=== PATIENT | female | born 2000 | race Hispanic/Latino ===

== ENCOUNTER 2024-11-11 02:35 | Emergency (ER) | payer SELFPAY ==
--- OUTSIDE RECORDS SUMMARY | 2024-11-11 02:41 | XMS REPORT | Continuity of Care Document ---
Author Name Unknown Address [address] [facility] [address] [place] [address] [facility] Address [address] [facility] 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 Name Role Phone Mone Soto Primary Care Physician [phone] Doctor Unassigned, [place] Attending Clinician U CHANDRIKA Sanches Attending Clinician Unavailable Chandrika Ivy DNP Attending Clinician [phone] [email or web address] Attending Clinician Unavailpamela Tariqb, [facility] Main Attending Clinician Junito Soria MD Attending Clinician [phone] JUNITO CONNER Attending Clinician Unavailfaizan barbosa Doctor Unassigned, [place] Attending Clinician U DMITRY Kramer Attending Clinician Unavailable Moises Pate DO Attending Clinician [phone] Dmitry Baum MD Attending Clinician [phone], [facility] Attending Clinician Unavailable Keren Sandoval MD Attending Clinician [phone] ALEJANDRO PASCUAL Attending Clinician Unavailable Alejandro Pascual MD Attending Clinician [phone], [facility] Attending Clinician Unavailable Billie Torres Attending Clinician + DMITRY BAUM Admitting Clinician Unavailable ALEJANDRO PASCUAL Admitting Clinician Unavailable [email or web address] Admitting Clinician Dmitry Hillman MD Admitting Clinician Alejandro Pascual MD Admitting Clinician Payers Payer Name Policy Type Policy Number Effective Date Expirati on Date Source CIGNA II [id number] 2018 00:00:00 [facility] MEDICA[employer] [id number] 2018 00:00:00 [employer] - CHOICE (POS II) [id number] 2020 00:00:00 Problems Condition Name Condition Details Condition Category Status Onset Date Resolution Date Last Treatment Date Treating Clinician Comments Source Chlamydial infection Chlamydial Infection Problem Active 09-13 00:00: 00 [facility] Bacterial vaginosis Bacterial Vaginosis Problem Active 08-23 00:00: 00 [facility] Candidiasi s of vagina Candidiasi s of Vagina Problem Active 08-23 00:00: 00 [facility] Acute vaginitis Acute Vaginitis Problem Active 6 00:00: 00 [facility] Abnormal cervical Papanicola ou smear Abnormal Cervical Papanicola ou Smear Problem Active 307 00:00: 00 [facility] Human papillomav irus deoxyribon ucleic acid detected, high risk on cervical specimen Human Papillomav irus Deoxyribon ucleic Acid Detected, High Risk on Cervical Specimen Problem Active 3-07 00:00: 00 [facility] Dyspareuni a Dyspareuni a Problem Active 2022-03 00:00: 00 [facility] Dysmenorrh ea Dysmenorrh ea Problem Active 2022-03 00:00: 00 [facility] Gynecologi c examinatio n Gynecologi c Examinatio n Problem Active 2022-03 0 00:00: 00 [facility] Active immunizati on Active Immunizati on Problem Active 10-07 00:00: 00 [facility] Gynecologi daisy examinatio n abnormal Gynecologi daisy Examinatio n Abnormal Problem Active 10-07 00:00: 00 [facility] Cervical intraepith elial neoplasia grade 2 Cervical Intraepith elial Neoplasia Grade 2 Problem Active 1-17 00:00: 00 [facility] Tobacco dependence caused by cigarettes Tobacco Dependence Caused by Cigarettes Problem Active 1-17 00:00: 00 [facility] Acne Acne Problem Active 2020-03 2-15 00:00: 00 [facility] Atypical squamous cells of undetermin ed significan ce on cervical Papanicola ou smear Atypical Squamous Cells of Undetermin ed Significan ce on Cervical Papanicola ou Smear Problem Active 2020-03 2-15 00:00: 00 [facility] Contracept ion care education Contracept ion Care Education Problem Active 2020-03 2 00:00: 00 [facility] Human papilloma virus screening Human Papilloma Virus Screening Problem Active 2020-03 00:00: 00 [facility] Papanicola ou smear of cervix with high grade squamous intraepith elial lesion (HGSIL) Papanicola ou smear of cervix with high grade squamous intraepith elial lesion (HGSIL) Disease Active 2019-03 0-05 00:00: 00 [facility] Family history of factor V Leiden mutation Family history of factor V Leiden mutation Disease Active 2019-03 0-05 00:00: 00 [facility] Anemia of mother in , antepartum Anemia of mother in , antepartum Disease Active 2 00:00: 00 [facility] Nausea and vomiting during prior to 22 weeks gestation Nausea and vomiting during prior to 22 weeks gestation Disease Active 2018-03 1-12 00:00: 00 [facility] Multiparit y Multiparit y Disease Active 2018-03 015 00:00: 00 [facility] Family history of blood coagulatio n disorder Family history of blood coagulatio n disorder Disease Active 2018-03 0-15 00:00: 00 [facility] Atypical squamous cells of undetermin ed significan ce on cytologic smear of cervix (ASC-US) Atypical squamous cells of undetermin ed significan ce on cytologic smear of cervix (ASC-US) Disease Resolve d 2020-03 0- 00:00: 00 2024-01-25 00:00:00 2024-01-25 10:52:17 [facility] Encounter for BCP ( control pills) initial prescripti on Encounter for BCP ( control pills) initial prescripti on Disease Resolve d 2019-1 0-05 00:00: 00 2024-01-25 00:00:00 2024-01-25 10:52:08 [facility] Obesity (BMI 30-39.9) Obesity (BMI 30-39.9) Disease Resolve d 2020-0 1-30 00:00: 00 2024-01-25 00:00:00 2024-01-25 10:52:12 [facility] Normal delivery Normal delivery Disease Resolve d 2020-0 5-08 00:00: 00 2019-11-09 00:00:00 2019-11-09 13:58:55 [facility] 38 weeks gestation of 38 weeks gestation of Disease Resolve d 2020-0 5-08 00:00: 00 2019-11-09 00:00:00 2019-11-09 13:58:56 [facility] Full-term premature rupture of membranes with onset of labor within 24 hours of rupture Full-term premature rupture of membranes with onset of labor within 24 hours of rupture Disease Resolve d 2019-0 5-08 00:00: 00 2019-11-09 00:00:00 2019-11-09 13:58:57 [facility] tachycardi a affecting management of mother tachycardi a affecting management of mother Disease Resolve d 2020-0 5-08 00:00: 00 2019-11-09 00:00:00 2019-11-09 13:59:00 [facility] Liveborn , of shine , born in hospital by vaginal delivery Liveborn infant, of shine , born in hospital by vaginal delivery Disease Resolve d 2020-0 5-08 00:00: 00 2019-11-09 00:00:00 2019-11-09 13:59:01 [facility] Anemia of mother in , antepartum Anemia of mother in , antepartum Disease Resolve d 2020-0 2-27 00:00: 00 2019-11-09 00:00:00 2019-11-09 13:58:51 [facility] Supervisio n of high risk in third trimester Supervisio n of high risk in third trimester Disease Resolve d 2018-03 0-15 00:00: 00 2019-11-09 00:00:00 2019-11-09 13:58:43 [facility] Acute right-side d low back pain without sciatica Acute right-side d low back pain without sciatica Disease Resolve d 2018-03 0-15 00:00: 00 2019-11-09 00:00:00 2019-11-09 13:58:48 [facility] Ingestion of substance, intentiona l self-harm, initial encounter Ingestion of substance, intentiona l self-harm, initial encounter Disease Resolve d 2015-03 00:00: 00 2019-11-09 00:00:00 2021-10-06 00:42:59 Overview: Took 6 500mg pills of Depakote. [facility] Suicide attempt Suicide attempt Disease Resolve d 2015-03 00:00: 00 2019-11-09 00:00:00 2019-11-09 13:59:14 [facility] Nausea and vomiting during prior to 22 weeks gestation Nausea and vomiting during prior to 22 weeks gestation Disease Resolve d 2018-03 1-12 00:00: 00 2019-07-29 00:00:00 2019-07-29 03:59:16 [facility] Allergies, Adverse Reactions, Alerts Allergy Name Allergy Type Status Severity Reaction(s) Onset Date Inactive Date Treating Clinician Comments Source NO KNOWN ALLERGIE S Drug Class Active [facility] Social History Social Habit Start Date Stop Date Quantity Comments Source ASSERTION 2019-10-25 00:00:00 [facility] Tobacco use and exposure 2024-01-25 00:00:00 2024-01-25 00:00:00 Smokeless tobacco non-user [facility] Alcoholic beverage intake 2024-01-25 00:00:00 2024-01-25 00:00:00 Current non-drinker of alcohol (finding) [facility] Exposure to SARS-CoV-2 (event) 2020-06-24 00:00:00 2020-07-24 13:52:00 Not sure [facility] Alcohol intake 2019-12-26 00:00:00 2019-12-26 00:00:00 Current non-drinker of alcohol (finding) [facility] History of Social function 2019-10-27 00:00:00 2019-10-27 00:00:00 [facility] Sex assigned at 2000 00:00:00 2000 00:00:00 [facility] Smoking Status Start Date Stop Date Source Tobacco smoking consumption unknown [facility] Former Smoker [facility] Never smoked tobacco [facility] Medications Ordered Medication Name Filled Medication Name Start Date Stop Date Current Medication? Ordering Clinician Indication Dosage Frequency Signature (SIG) Comments Components Source metroNIDAZO LE 500 mg tablet 2023-03 00:00: 00 02-08 05:59 :00 No [id number] 500mg Take 1 tablet by mouth in the morning and 1 tablet in the evening. Do all this for 7 days. [facility] Nitrofurant oin&Nit. Macrocryst (MACROBID) 100 mg capsule 2023-03 00:00: 00 02-03 05:59 :00 No [id number] 100mg Take 1 capsule by mouth in the morning and 1 capsule in the evening. Do all this for 5 days. [facility] norethindro ne 0.35 mg tablet 2019-03 00:00: 00 Yes [id number] 1{tbl} Take 1 tablet by mouth daily. [facility] rho(D) immune globulin (RHOGAM) syringe 300 mcg 07-28 11:17: 15 Yes 300ug 300 mcg, Intramuscu lar, ONCE, For 1 dose, Conditiona l, Routine [facility] HYDROcodone -acetaminop hen (NORCO 5) 5-325 mg tablet 1 tablet 07-28 11:17: 11 Yes 1{tbl} 1 tablet, Oral, Q6HPRN, Starting Thu07/29/19 at 0617, Until Discontinu ed, Routine, Pain (scale 7-10) [facility] ibuprofen (IBU) tablet 600 mg 07-28 11:17: 11 Yes 600mg 600 mg, Oral, Q6HPRN, Starting Thu07/29/19 at 616, Until Discontinu ed, Routine, Pain (scale 4-6) [facility] acetaminoph en (TYLENOL) tablet 650 mg 07-28 11:17: 11 Yes 650mg 650 mg, Oral, Q6HPRN, Starting Thu07/29/19 at 06, Until Discontinu ed, Routine, Pain (scale 1-3) [facility] diphenhydrA MINE (BENADRYL) tablet 25 mg 07-28 11:17: 11 Yes 25mg 25 mg, Oral, Q6HPRN, Starting Thu07/29/19 at 616, Until Discontinu ed, Routine, Sleep, Itching [facility] diphenhydrA MINE-0.9 % sod.chlr (BENADRYL) 25 mg/50 mL piggyback 25 mg 07-28 11:17: 11 Yes 25mg 25 mg, IV Piggyback, Administer over 30 Minutes, Q6HPRN, Starting Thu07/29/19 at 06, Until Discontinu ed, Routine, Itching [facility] ondansetron (ZOFRAN (PF)) injection 4 mg 07-28 11:17: 11 Yes 4mg 4 mg, Slow IV Push, Q8HPRN, Starting Thu07/29/19 at 616, Until Discontinu ed, Routine, Nausea and Vomiting (N/V) [facility] simethicone (GAS RELIEF (SIMETHICON E)) chewable tablet 160 mg 07-28 11:17: 11 Yes 160mg 160 mg, Oral, PC+HSPRN, Starting Thu07/29/19 at 06, Until Discontinu ed, Routine, Gas [facility] docusate calcium (SURFAK) capsule 240 mg 07-28 11:17: 11 Yes 240mg 240 mg, Oral, QDAILYPRN, Starting Thu07/29/19 at 17, Until Discontinu ed, Routine, Constipati on [facility] magnesium hydroxide (MILK OF MAGNESIA) 400 mg/5 mL suspension 30 mL 07-28 11:17: 11 Yes 30mL 30 mL, Oral, QDAILYPRN, Starting Thu07/29/19 at 0617, Until Discontinu ed, Routine, Constipati on [facility] benzocaine- menthol (DERMOPLAST ) 20-0.5 % topical spray 07-28 11:17: 11 Yes Topical, PRN, Starting Thu07/29/19 at 0617, Until Discontinu ed, Routine, Perineum discomfort [facility] ampicillin (POLYCILLIN -N) 2,000 mg in NaCl 0.9% (NS) 100 mL MINI-BAG 07-28 10:15: 00 07-28 10:56 :00 No 2g 2,000 mg (2 g), IV Piggyback, Q6H ABX, First dose on Thu07/29/19 at 0515, Until Discontinu ed, 100 mL
Reas on for Anti-Infec tive: Empiric Therapy for Suspected Infection< br>Empiric Therapy Site: Pelvic
Duration of therapy: 72 hours [facility] gentamicin in NS 120 mg/100 mL RTU IV piggyback 120 mg 07-28 09:21: 00 07-28 10:56 :00 No 120mg 120 mg, IV Infusion, Q24H ABX, First dose on Thu07/29/19 at 0430, Until Discontinu ed, 100 mL
Reas on for Anti-Infec tive: Empiric Therapy for Suspected Infection< br>Empiric Therapy Site: Other
O ther site: chorio
Duration of therapy: 72 hours [facility] docusate calcium 240 mg capsule 07-28 00:00: 11-08 00:00 :00 No [id number] 102 240mg Take 1 capsule by mouth 2 (two) times daily as needed for Constipati on. [facility] ibuprofen 600 mg tablet 07-28 00:00: 11-08 00:00 :00 No [id number] 102 600mg Take 1 tablet by mouth every 6 (six) hours as needed for Pain (scale 4-6). [facility] iron sucrose (VENOFER) 300 mg in NaCl 0.9% (NS) 250 mL infusion 07-03 14:30: 00 07-03 16:28 :00 No 300mg 300 mg, IV Infusion, ONCE, 07/04/19 at 0930, For 1 dose [facility] iron sucrose (VENOFER) 300 mg in NaCl 0.9% (NS) 250 mL infusion 06-27 14:45: 00 06-27 16:36 :00 No 300mg 300 mg, IV Infusion, ONCE, 06/28/19 at 0945, For 1 dose [facility] acetaminoph en (TYLENOL) tablet 650 mg 06-21 06:45: 00 06-21 06:41 :00 No 650mg 650 mg, Oral, ONCE, 1 dose, 06/22/19 at 0145, Routine [facility] iron sucrose (VENOFER) 300 mg in NaCl 0.9% (NS) 250 mL infusion 06-19 15:00: 00 06-19 16:57 :00 No 300mg 300 mg, IV Infusion, ONCE, 06/20/19 at 1000, For 1 dose [facility] iron polysacchar ides (FERREX 150) 150 mg iron capsule 05-20 00:00: 00 07-28 00:00 :00 No [id number] 1{capsu le} Take 1 capsule by mouth 2 (two) times daily. [facility] ferrous sulfate 325 mg (65 mg iron) tablet 05-19 00:00: 11-08 00:00 :00 No [id number] 325mg Take 1 tablet by mouth 2 (two) times daily. [facility] ascorbic acid, vitamin C, 500 mg tablet 05-19 00:00: 11-08 00:00 :00 No [id number] 500mg Take 1 tablet by mouth 3 (three) times daily. [facility] lidocaine 5 % (700 mg/patch) patch 2018-03 224 00:00: 00 07-28 00:00 :00 No [id number] Apply ONE patch to most painful area every 12 hours as needed for pain. PHARMACIST : dispense ONE BOX [facility] proMETHazin e 25 mg tablet 2018-03 00:00: 00 07-28 00:00 :00 No [id number] 25mg Take 1 tablet by mouth every 4 (four) hours as needed for Nausea and Vomiting (N/V). [facility] vit 33-iron-fol ic-dha (SELECT-OB + DHA) 29 mg iron-1 mg -250 mg combo pack 2018-03 015 00:00: 00 11-08 00:00 :00 No [id number] 1{packe t} Take 1 Packet by mouth daily. [facility] ibuprofen 600 mg tablet 12-07 14:20: 41 12-07 00:00 :00 No 600mg Take 600 mg by mouth every 6 (six) hours as needed. [facility] traMADOL (ULTRAM) 50 mg tablet 2017-03 00:00: 00 Yes 50mg Take 1 tablet by mouth every 6 (six) hours as needed for Pain (scale 7-10). [facility] ibuprofen 600 mg tablet 04-30 23:03: 17 Yes 600mg Take 600 mg by mouth every 6 (six) hours as needed. [facility] ibuprofen 800 mg tablet 04-30 00:00: 00 Yes 800mg Take 1 tablet by mouth every 8 (eight) hours. [facility] acetaminoph en-codeine 120-12 mg/5 mL suspension 04-30 00:00: 00 Yes 12.5mL Take 12.5 mL by mouth every 6 (six) hours as needed for Pain. [facility] acetaminoph en-codeine 300-30 mg tablet 04-13 00:00: 00 12-07 00:00 :00 No 1{tbl} Take 1 tablet by mouth every 4 (four) hours as needed for Pain (scale 4-6). [facility] ondansetron 4 mg disintegrat ing tablet 04-13 00:00: 00 12-07 00:00 :00 No 4mg Take 1 tablet by mouth every 8 (eight) hours as needed for Nausea and Vomiting (N/V). [facility] No known medications No Un carl ity [facility] No known medications No Un carl ity [facility] No known medications No Un carl ity [facility] No known medications No Un carl ity [facility] No known medications No Un carl ity [facility] No known medications No Un carl ity [facility] levofloxaci n 500 mg tablet Take 1 tablet every 24 hours by oral route for 14 days. levofloxaci n 500 mg tablet Take 1 tablet every 24 hours by oral route for 14 days. No 1 Q24H levofloxac in 500 mg tablet Take 1 tablet every 24 hours by oral route for 14 days. [facility] metronidazo le 500 mg tablet Take 1 tablet every 12 hours by oral route for 14 days. metronidazo le 500 mg tablet Take 1 tablet every 12 hours by oral route for 14 days. No 1 Q12H metronidaz ole 500 mg tablet Take 1 tablet every 12 hours by oral route for 14 days. [facility] Immunizations Ordered Immunization Name Filled Immunization Name Date Status Comments Source HPV 2021-10-07 00:00:00 Completed HPV 2021-03-06 00:00:00 Completed TDAP (ADACEL) VACCINE 2019-05-19 00:00:00 Completed [facility] TDAP (ADACEL) VACCINE 2019-05-19 00:00:00 Completed [facility] TDAP (ADACEL) VACCINE 2019-05-19 00:00:00 Completed [facility] TDAP (ADACEL) VACCINE 2019-05-19 00:00:00 Completed [facility] TDAP (ADACEL) VACCINE 2019-05-19 00:00:00 Completed [facility] TDAP (ADACEL) VACCINE 2019-05-19 00:00:00 Completed [facility] TDAP (ADACEL) VACCINE 2019-05-19 00:00:00 Completed [facility] TDAP (ADACEL) VACCINE 2019-05-19 00:00:00 Completed [facility] TDAP (ADACEL) VACCINE 2019-05-19 00:00:00 Completed [facility] TDAP (ADACEL) VACCINE 2019-05-19 00:00:00 Completed [facility] TDAP (ADACEL) VACCINE 2019-05-19 00:00:00 Completed [facility] TDAP (ADACEL) VACCINE 2019-05-19 00:00:00 Completed [facility] TDAP (ADACEL) VACCINE 2019-05-19 00:00:00 Completed [facility] TDAP (ADACEL) VACCINE 2019-05-19 00:00:00 Completed [facility] TDAP (ADACEL) VACCINE 2019-05-19 00:00:00 Completed [facility] TDAP (ADACEL) VACCINE 2019-05-19 00:00:00 Completed [facility] TDAP (ADACEL) VACCINE 2019-05-19 00:00:00 Completed [facility] TDAP (ADACEL) VACCINE 2019-05-19 00:00:00 Completed [facility] TDAP (ADACEL) VACCINE 2019-05-19 00:00:00 Completed [facility] TDAP (ADACEL) VACCINE 2019-05-19 00:00:00 Completed [facility] TDAP (ADACEL) VACCINE 2019-05-19 00:00:00 Completed [facility] TDAP (ADACEL) VACCINE 2019-05-19 00:00:00 Completed [facility] TDAP (ADACEL) VACCINE 2019-05-19 00:00:00 Completed [facility] TDAP (ADACEL) VACCINE 2019-05-19 00:00:00 Completed [facility] TDAP (ADACEL) VACCINE 2019-05-19 00:00:00 Completed [facility] TDAP (ADACEL) VACCINE 2019-05-19 00:00:00 Completed [facility] TDAP (ADACEL) VACCINE 2019-05-19 00:00:00 Completed [facility] TDAP (ADACEL) VACCINE 2019-05-19 00:00:00 Completed [facility] TDAP (ADACEL) VACCINE 2019-05-19 00:00:00 Completed [facility] TDAP (ADACEL) VACCINE 2019-05-19 00:00:00 Completed [facility] TDAP (ADACEL) VACCINE 2019-05-19 00:00:00 Completed [facility] TDAP (ADACEL) VACCINE 2019-05-19 00:00:00 Completed [facility] TDAP (ADACEL) VACCINE 2019-05-19 00:00:00 Completed [facility] TDAP (ADACEL) VACCINE 2019-05-19 00:00:00 Completed [facility] TDAP (ADACEL) VACCINE 2019-05-19 00:00:00 Completed [facility] TDAP (ADACEL) VACCINE 2019-05-19 00:00:00 Completed [facility] TDAP (ADACEL) VACCINE 2019-05-19 00:00:00 Completed [facility] HPV 2009-10-26 00:00:00 Completed Meningococcal Polysaccharide (groups A, C, Y and W-135) conjugate vaccine (MCV4P) 2009-10-26 00:00:00 Completed Varicella (varivax)(chicken pox) 2009-10-26 00:00:00 Completed TDAP 2009-10-26 00:00:00 Completed DTaP, Unspecified Formulation 2003-10-20 00:00:00 Completed HEPATITIS A 2003-10-20 00:00:00 Completed MMR 2003-10-20 00:00:00 Completed IPV 2003-10-20 00:00:00 Completed HEPATITIS A 2000-10-08 00:00:00 Completed Pneumococcal 7 Conjugate, PCV7 (Prevnar7) 2000-10-08 00:00:00 Completed DTaP, Unspecified Formulation 2000-03-12 00:00:00 Completed HIB 4 Dose Schedule 2000-03-12 00:00:00 Completed MMR 1999-08-29 00:00:00 Completed Varicella (varivax)(chicken pox) 1999-08-29 00:00:00 Completed IPV 1999-08-29 00:00:00 Completed DTaP, Unspecified Formulation 1999-04-02 00:00:00 Completed Hep B, Adol or Pedi Dosage 1999-04-02 00:00:00 Completed HIB 4 Dose Schedule 1999-04-02 00:00:00 Completed IPV 1999-04-02 00:00:00 Completed DTaP, Unspecified Formulation 1998 00:00:00 Completed [facility] HIB 4 Dose Schedule 2000 00:00:00 Completed IPV 1998 00:00:00 Completed DTaP, Unspecified Formulation 1998 00:00:00 Completed HIB 4 Dose Schedule 2000 00:00:00 Completed IPV 1998 00:00:00 Completed Hep B, Adol or Pedi Dosage 1998 00:00:00 Completed Hep B, Adol or Pedi Dosage 1998 00:00:00 Completed HPV9 HPV9 Unknown Completed [facility] Sign[facility] Vital Name Observation Time Observation Value Comments S ource BP Systolic 2024-10-31 00:00:00 105 mm[Hg] [facility] Body Weight 2024-10-31 00:00:00 113.6 [lb_av] [facility] BMI (Body Mass Index) 2024-10-31 00:00:00 20.8 kg/m2 [facility] Height 2024-10-31 00:00:00 62 [in_i] [facility] BP Diastolic 2024-10-31 00:00:00 69 mm[Hg] [facility] Body Weight 2024-09-14 00:00:00 111.6 [lb_av] [facility] Height 2024-09-14 00:00:00 62 [in_i] [facility] BP Systolic 2024-09-14 00:00:00 98 mm[Hg] [facility] BP Diastolic 2024-09-14 00:00:00 76 mm[Hg] [facility] BMI (Body Mass Index) 2024-09-14 00:00:00 20.4 kg/m2 [facility] BMI (Body Mass Index) 2024 00:00:00 20.4 kg/m2 [facility] BP Diastolic 2024 00:00:00 70 mm[Hg] [facility] Height 2024 00:00:00 62 [in_i] [facility] Body Weight 2024 00:00:00 111.6 [lb_av] [facility] BP Systolic 2024 00:00:00 110 mm[Hg] [facility] Systolic blood pressure 2024-01-25 14:13:00 108 mm[Hg] [facility] Diastolic blood pressure 2024-01-25 14:13:00 75 mm[Hg] [facility] Heart rate 2024-01-25 14:13:00 92 /min [facility] Respiratory rate 2024-01-25 14:13:00 16 /min [facility] Body height 2024-01-25 14:13:00 157.5 cm [facility] Body weight 2024-01-25 14:13:00 51.438 kg [facility] BMI 2024-01-25 14:13:00 20.74 kg/m2 [facility] BP Systolic 2023-05-28 00:00:00 98 mm[Hg] [facility] Body Weight 2023-05-28 00:00:00 115.8 [lb_av] [facility] Height 2023-05-28 00:00:00 62 [in_i] [facility] BMI (Body Mass Index) 2023-05-28 00:00:00 21.2 kg/m2 [facility] BP Diastolic 2023-05-28 00:00:00 67 mm[Hg] [facility] Systolic blood pressure 2019-12-26 18:45:00 102 mm[Hg] [facility] Diastolic blood pressure 2019-12-26 18:45:00 71 mm[Hg] [facility] [facility] Heart rate 2019-12-26 18:45:00 84 /min [facility] Body temperature 2019-12-26 18:45:00 36.83 Nubia [facility] Respiratory rate 2019-12-26 18:45:00 16 /min [facility] Body height 2019-12-26 18:45:00 157.5 cm [facility] Body weight 2019-12-26 18:45:00 69.854 kg [facility] BMI 2019-12-26 18:45:00 28.17 kg/m2 [facility] Systolic blood pressure 2019-11-23 16:15:00 92 mm[Hg] [facility] Diastolic blood pressure 2019-11-23 16:15:00 57 mm[Hg] [facility] Heart rate 2019-11-23 16:15:00 67 /min [facility] Body temperature 2019-11-23 16:15:00 36.89 Nubia [facility] Respiratory rate 2019-11-23 16:15:00 18 /min [facility] Body height 2019-11-23 16:15:00 157.5 cm [facility] Body weight 2019-11-23 16:15:00 70.761 kg [facility] BMI 2019-11-23 16:15:00 28.53 kg/m2 [facility] Systolic blood pressure 2019-11-09 15:56:00 100 mm[Hg] [facility] Diastolic blood pressure 2019-11-09 15:56:00 62 mm[Hg] [facility] Heart rate 2019-11-09 15:56:00 82 /min [facility] Body temperature 2019-11-09 15:56:00 37.17 Nubia [facility] Respiratory rate 2019-11-09 15:56:00 18 /min [facility] Body height 2019-11-09 15:56:00 154.9 cm [facility] Body weight 2019-11-09 15:56:00 71.668 kg [facility] BMI 2019-11-09 15:56:00 29.85 kg/m2 [facility] Systolic blood pressure 2019-07-29 22:45:00 102 mm[Hg] [facility] Diastolic blood pressure 2019-07-29 22:45:00 60 mm[Hg] [facility] Heart rate 2019-07-29 22:45:00 91 /min [facility] Body temperature 2019-07-29 22:45:00 36.67 Nubia [facility] Oxygen saturation in Arterial blood by Pulse oximetry 2019-07-29 12:15:00 100 /min [facility] Respiratory rate 2019-07-29 11:30:00 20 /min [facility] Systolic blood pressure 2019-07-28 20:09:00 105 mm[Hg] [facility] Diastolic blood pressure 2019-07-28 20:09:00 70 mm[Hg] [facility] Heart rate 2019-07-28 20:09:00 110 /min [facility] Body temperature 2019-07-28 20:09:00 36.83 Nubia [facility] Respiratory rate 2019-07-28 20:09:00 16 /min [facility] Body height 2019-07-28 20:09:00 157.5 cm [facility] Body weight 2019-07-28 20:09:00 88.27 kg [facility] BMI 2019-07-28 20:09:00 35.59 kg/m2 [facility] Systolic blood pressure 2019-07-21 19:57:00 110 mm[Hg] [facility] Diastolic blood pressure 2019-07-21 19:57:00 74 mm[Hg] [facility] Heart rate 2019-07-21 19:57:00 116 /min [facility] Body temperature 2019-07-21 19:57:00 37.06 Nubia [facility] Respiratory rate 2019-07-21 19:57:00 18 /min [facility] Body height 2019-07-21 19:57:00 157.5 cm [facility] Body weight 2019-07-21 19:57:00 88.451 kg Univ [facility] BMI 2019-07-21 19:57:00 35.67 kg/m2 [facility] Systolic blood pressure 2019-07-04 13:31:00 111 mm[Hg] [facility] Diastolic blood pressure 2019-07-04 13:31:00 66 mm[Hg] [facility] Heart rate 2019-07-04 13:31:00 116 /min [facility] Body temperature 2019-07-04 13:31:00 36.67 Nubia [facility] Respiratory rate 2019-07-04 13:31:00 18 /min [facility] Body height 2019-07-04 13:31:00 157.5 cm [facility] Body weight 2019-07-04 13:31:00 87.091 kg [facility] BMI 2019-07-04 13:31:00 35.12 kg/m2 [facility] Systolic blood pressure 2019-06-28 17:30:00 103 mm[Hg] [facility] Diastolic blood pressure 2019-06-28 17:30:00 62 mm[Hg] [facility] Heart rate 2019-06-28 17:30:00 108 /min [facility] Body temperature 2019-06-28 17:00:00 36.72 Nubia [facility] Respiratory rate 2019-06-28 17:00:00 18 /min [facility] Body height 2019-06-28 13:08:00 157.5 cm [facility] Body weight 2019-06-28 13:08:00 86.183 kg [facility] BMI 2019-06-28 13:08:00 34.75 kg/m2 [facility] Oxygen saturation in Arterial blood by Pulse oximetry 2019-06-28 13:08:00 100 /min [facility] Heart rate 2019-06-22 06:00:00 116 /min Un[facility] Oxygen saturation in Arterial blood by Pulse oximetry 2019-06-22 05:30:00 100 /min [facility] Systolic blood pressure 2019-06-22 04:30:00 108 mm[Hg] [facility] Diastolic blood pressure 2019-06-22 04:30:00 59 mm[Hg] [facility] Body temperature 2019-06-22 04:30:00 37.17 Nubia [facility] Respiratory rate 2019-06-22 04:13:00 20 /min [facility] Body height 2019-06-22 04:13:00 157.5 cm [facility] Body weight 2019-06-22 04:13:00 87.091 kg [facility] BMI 2019-06-22 04:13:00 35.12 kg/m2 [facility] Systolic blood pressure 2019-06-20 18:35:00 112 mm[Hg] [facility] Diastolic blood pressure 2019-06-20 18:35:00 61 mm[Hg] [facility] Heart rate 2019-06-20 18:35:00 107 /min [facility] Body temperature 2019-06-20 18:35:00 36.94 Nubia [facility] Respiratory rate 2019-06-20 18:35:00 20 /min [facility] Oxygen saturation in Arterial blood by Pulse oximetry 2019-06-20 18:35:00 98 /min [facility] Body height 2019-06-20 13:23:00 157.5 cm [facility] Body weight 2019-06-20 13:23:00 85.73 kg [facility] BMI 2019-06-20 13:23:00 34.57 kg/m2 [facility] Systolic blood pressure 2019-06-17 16:35:00 111 mm[Hg] [facility] Diastolic blood pressure 2019-06-17 16:35:00 68 mm[Hg] [facility] Heart rate 2019-06-17 16:35:00 119 /min [facility] Body temperature 2019-06-17 16:35:00 36.94 Nubia [facility] Respiratory rate 2019-06-17 16:35:00 18 /min [facility] Body height 2019-06-17 16:35:00 157.5 cm [facility] Body weight 2019-06-17 16:35:00 86.637 kg [facility] BMI 2019-06-17 16:35:00 34.93 kg/m2 [facility] Systolic blood pressure 2019-06-03 16:39:00 113 mm[Hg] [facility] Diastolic blood pressure 2019-06-03 16:39:00 69 mm[Hg] [facility] Heart rate 2019-06-03 16:39:00 121 /min [facility] Body temperature 2019-06-03 16:39:00 37.06 Nubia [facility] Respiratory rate 2019-06-03 16:39:00 18 /min [facility] Body height 2019-06-03 16:39:00 157.5 cm [facility] Body weight 2019-06-03 16:39:00 85.73 kg [facility] BMI 2019-06-03 16:39:00 34.57 kg/m2 [facility] Systolic blood pressure 2019-05-19 15:54:00 102 mm[Hg] [facility] Diastolic blood pressure 2019-05-19 15:54:00 70 mm[Hg] [facility] Heart rate 2019-05-19 15:54:00 123 /min Unive [facility] Body temperature 2019-05-19 15:54:00 36.94 Nubia [facility] Respiratory rate 2019-05-19 15:54:00 18 /min [facility] Body height 2019-05-19 15:54:00 157.5 cm [facility] Body weight 2019-05-19 15:54:00 84.369 kg [facility] BMI 2019-05-19 15:54:00 34.02 kg/m2 [facility] Systolic blood pressure 2019-04-21 21:06:00 103 mm[Hg] [facility] Diastolic blood pressure 2019-04-21 21:06:00 72 mm[Hg] [facility] Heart rate 2019-04-21 21:06:00 112 /min [facility] Body temperature 2019-04-21 21:06:00 36.83 Nubia [facility] Respiratory rate 2019-04-21 21:06:00 18 /min [facility] Body height 2019-04-21 21:06:00 154.9 cm [facility] Body weight 2019-04-21 21:06:00 78.926 kg [facility] BMI 2019-04-21 21:06:00 32.88 kg/m2 [facility] Systolic blood pressure 2019-04-15 19:15:00 111 mm[Hg] [facility] Diastolic blood pressure 2019-04-15 19:15:00 75 mm[Hg] [facility] Heart rate 2019-04-15 19:15:00 107 /min [facility] Body temperature 2019-04-15 19:15:00 36.11 Nub[facility] Respiratory rate 2019-04-15 19:15:00 16 /min [facility] Body height 2019-04-15 19:15:00 154.9 cm [facility] Body weight 2019-04-15 19:15:00 81.307 kg [facility] BMI 2019-04-15 19:15:00 33.87 kg/m2 [facility] Procedures Procedure Date / Time Performed Performing Clinician Source Cold Knife [facility] Biopsy of Cervix 2024-10-20 00:00:00 [facility] SCANNED LAB RESULTS 2024-03-04 18:16:05 Doctor Enrico lopez, [place] [facility] POCT URINALYSIS W/O SPECIFIC GRAVITY 2024-01-25 00:00:00 JourdanjourdansedajayChandrika [facility] Abdominoplasty 2020-08-19 00:00:00 [facility] ASSIGNMENT OF BENEFITS 2020-07-24 18:54:54 Docto r Unassigned, [place] [facility] POCT TEST 2019-12-26 19:03:00 Dmitry Baum [facility] CONSENT FOR ORAL CONTRACEPTIVES 2019-12-26 05:01:00 Doctor Unassigned, [place] [facility] US OB TRANSVAGINAL 2019-11-23 16:33:01 Dmitry Baum [facility] ULTRASOUND 2019-11-23 05:01:00 Doc tor Unassigned, [place] [facility] TOTAL BETA HCG ASSAY 2019-11-11 14:51:00 Dmitry Baum [facility] PAP SMEAR-LIQUID BASED-CP 2019-11-09 16:26:00 Gal Baum [facility] AUTHORIZATION TO RELEASE PHI TO [place] 2019-11-09 05:01:00 Doctor Unassigned, [place] [facility] POCT TEST 2019-11-09 00:00:00 Dmitry Baum [facility] POCT URINALYSIS W/O SPECIFIC GRAVITY 2019-11-09 00:00:00 Dmitry Baum [facility] CBC WITH DIFFERENTIAL 2019-07-29 23:23:00 Alejandro Pascual [facility] VENOUS CORD GAS 2019-07-29 10:47:00 Dmitry Baum [facility] CBC WITH DIFFERENTIAL 2019-07-29 06:25:00 Dmitry Baum [facility] HEPATITIS B SURFACE ANTIGEN 2019-07-29 06:25:00 Dmitry Baum [facility] HB ABO GROUPING 2019-07-29 06:25:00 Dmitry Baum [facility] RHO (D) IMMUNE GLOBULIN 2019-07-29 06:25:00 Dmitry Baum [facility] ADC OR RALPH ONLY - RPR 2019-07-29 06:25:00 Daria Baumfamilia lamont [facility] HIV 1/2 AG-AB WITH REFLEX 2019-07-29 06:25:00 Daria Baumfamilia lamont Herbert [facility] CORONAVIRUS COVID-19 TESTING 2019-07-29 06:25:00 Baum Dmitry Keon [facility] ADC ONLY - FERN TEST 2019-07-29 06:00:00 Edilberto Dmitry Herbert [facility] POCT URINALYSIS W/O SPECIFIC GRAVITY 2019-07-28 00:00:00 Pascual [facility] ASSIGNMENT OF BENEFITS 2019-07-21 20:38:47 Docto r Unassigned, [place] [facility] GC & CHLAMYDIA AMPLIFIED ASSAY 2019-07-21 [facility]:15[facility] STREPTOCOCCUS BY PCR 2019-07-21 20:15:00 Pascual [facility] POCT URINALYSIS W/O SPECIFIC GRAVITY 2019-07-21 00:00:00 Pascual [facility] ASSIGNMENT OF BENEFITS 2019-07-04 13:01:34 Docto r Unassigned, [place] [facility] CONSENT/REFUSAL FOR DIAGNOSIS AND TREATMENT 2019-06-28 13:02:00 Doctor Unassigned, [place] [facility] CONSENT/REFUSAL FOR DIAGNOSIS AND TREATMENT 2019-06-28 13:01:59 Doctor Unassigned, [place] [facility] ASSIGNMENT OF BENEFITS 2019-06-28 13:01:42 Docto r Unassigned, [place] [facility] URINALYSIS 2019-06-22 07:32:00 Dmitry Baum [facility] URINALYSIS 2019-06-22 05:18:00 Dmitry Baum [facility] ADC CLC OR LCC ONLY - WET PREP 2019-06-22 05:15:00 Daria Baumen Keon [facility] ASSIGNMENT OF BENEFITS 2019-06-22 03:42:07 Docto r Unassigned, [place] [facility] CONSENT/REFUSAL FOR DIAGNOSIS AND TREATMENT 2019-06-22 03:41:51 Doctor Unassigned, [place] [facility] CONSENT/REFUSAL FOR DIAGNOSIS AND TREATMENT 2019-06-20 13:03:28 Doctor Unassigned, [place] [facility] ASSIGNMENT OF BENEFITS 2019-06-20 13:03:15 Docto r Unassigned, [place] [facility] ASSIGNMENT OF BENEFITS 2019-06-17 17:24:43 Docto r Unassigned, [place] [facility] POCT URINALYSIS W/O SPECIFIC GRAVITY 2019-06-17 00:00:00 Ankur Alejandro [facility] EXTERNAL PROVIDER RECORDS 2019-06-08 05:01:00 Do ctor Unassigned, [place] [facility] POCT URINALYSIS W/O SPECIFIC GRAVITY 2019-06-03 00:00:00 Pascual [facility] TDAP (ADACEL) IMMUNIZATION 2019-05-19 16:08:04 Ankur [facility] AUTHORIZATION TO RELEASE PHI TO [facility] 2019-04-21 06:01:00 Doctor Unassigned, [place] [facility] POCT URINALYSIS 2019-04-15 19:31:00 Mitesh Alatorre [facility] ASSIGNMENT OF BENEFITS 2018-12-07 18:37:27 Docto r Unassigned, [place] [facility] Encounters Start Date/Time End Date/Time Encounter Type Admission Type Attending [facility] Care Department Encounter ID Source 2021-01-17 20:18:51 Outpatient P [facility] NATE [id number] [facility] 2021-01-17 17:50:52 Outpatient P [facility] NATE [id number] [facility] 2021-01-17 17:17:21 Outpatient P [facility] NATE [id number] [facility] 2021-01-17 16:36:34 Outpatient P [facility] NATE [id number] [facility] 2021-01-17 16:36:08 Emergency [facility] [id number] [facility] 2021-01-17 16:24:46 Outpatient P [facility] NATE [id number] [facility] 2021-01-17 16:19:41 Outpatient P [facility] NATE [id number] [facility] 2024-10-31 00:00:00 2024-10-31 00:00:00 SAMUEL Lyons: [address], [place] [address] , Ph. [facility] - GC_GCBZW_Naz Wylie* [id number] [facility] 2024-09-28 00:00:00 2024-09-28 00:00:00 Sheree Banks MD: [address], [place] [address] , Ph. [facility] - GC_GCBZW_Naz Wylie* [id number] [facility] 2024-09-14 00:00:00 2024-09-14 00:00:00 SAMUEL Lyons: [address], [place] [id number] , Ph. [facility] GC_GCBZW_Naz Wylie* [id number] [facility] 2024-09-13 00:00:00 2024-09-13 00:00:00 MARKUS Acevedo: [address], [place] [address] , Ph. [facility] GC_GCBZW_Naz Wylie* [id number] [facility] 2024 00:00:00 2024 00:00:00 MARKUS Acevedo: [address], [place] [address] , Ph. [facility] GC_GCBZW_Naz Wylie* [id number] [facility] 2024-03-04 00:00:00 2024-05-07 06:29:12 Orders Only Doctor Unassigned, [place] Doctor Unassigned, [place] [facility]) 1.2840.114 350.1.13.10 4.2.7.2.686 [id number] [facility] 2017-04-23 00:00:00 2024-05-07 03:27:17 Orders Only Doctor Unassigned, [place] Doctor Unassigned, [place] [facility] 1.840.114 350.1.13.10 4.2.7.2.686 [id number] [facility] 2017-05-20 00:00:00 2024-05-07 03:25:26 Orders Only Doctor Unassigned, [place] Doctor Unassigned, [place] [facility] 1.2840.114 350.1.13.10 4.2.7.2.686 [id number] [facility] 2024-04-19 11:30:00 2024-04-19 11:30:00 Outpatient R CHANDRIKA IVY [facility] [id number] [facility] 2024-04-13 13:00:00 2024-04-13 13:00:00 Outpatient R CHANDRIKA IVY [facility] [id number] [facility] 2024-04-12 11:30:00 2024-04-12 11:30:00 Outpatient CHANDRIKA SALEEM [facility] [id number] [facility] 2024-02-08 00:00:00 2024-03-12 18:17:43 Patient Secure Msg Doctor Unassigned, [place] Doctor Unassigned, [place] [facility] 1..840.114 350.1.13.10 4.2.7.2.686 [id number] 134 [id number] [facility] 2024-02-03 00:00:00 2024-03-05 18:15:19 Patient Secure Msg Doctor Unassigned, [place] Doctor Unassigned, [place] [facility] 1.2.840.114 350.1.13.10 4.2.7.2.686 [id number] 134 [id number] [facility] 2024-03-01 09:30:00 2024-03-01 09:30:00 Outpatient R FADYCHANDRIKA GOMES [facility] [id number] [facility] 2024-02-23 14:00:00 2024-02-23 14:00:00 Outpatient R CATA CHANDRIKA [facility] [id number] [facility] 2024-02-22 00:00:00 2024-02-23 11:10:29 [facility] 1.2.840.114 350.1.13.10 4.2.7.2.686 [id number] [facility] 2024-02-09 00:00:00 2024-02-09 15:22:50 Telephone JourdanChandrika stock [facility] 1.2.840.114 350.1.13.10 4.2.7.2.686 [id number] 134 [id number] [facility] 2024-02-02 00:00:00 2024-02-08 13:39:40 Telephone FadyChandrika gomes [facility] 1.2.840.114 350.1.13.10 4.2.7.2.686 [id number] [facility] 2024-02-08 13:00:00 2024-02-08 13:00:00 Outpatient CHANDRIKA SALEEM [facility] [id number] [facility] 2024-02-03 15:00:00 2024-02-03 15:00:00 Outpatient CHANDRIKA SALEEM [facility] [id number] [facility] 2024-02-03 12:30:00 2024-02-03 12:30:00 Outpatient R CHANDRIKA IVY [facility] [id number] [facility] 2024-02-01 00:00:00 2024-02-01 16:45:28 Telephone Chandrika Ivy [facility] 1.2.840.114 350.1.13.10 4.2.7.2.686 [id number] 134 [id number] [facility] 2024-02-01 00:00:00 2024-02-01 11:54:14 Telephone Chandrika Ivy [facility] 1.2.840.114 350.1.13.10 4.2.7.2.686 [id number] 134 [id number] [facility] 2024-01-29 00:00:00 2024-01-29 16:52:14 Case Management Chandrika Ivy [facility] 1.2.840.114 350.1.13.10 4.2.7.2.686 [id number] 134 [id number] [facility] 2024-01-28 00:00:00 2024-01-28 16:07:53 Telephone Chandrika Ivy [facility] 1.2.840.114 350.1.13.10 4.2.7.2.686 [id number] 134 [id number] [facility] 2024-01-25 08:00:00 2024-01-25 08:39:08 Outpatient R HCANDRIKA IVY [facility] [id number] [facility] 2024-01-25 08:00:00 2024-01-25 08:39:08 Office Visit Chnadrika Ivy [facility] 1.20.114 350.1.13.10 4.2.7.2.686 [id number] 134 [id number] [facility] 2023-06-24 00:00:00 2023-06-24 00:00:00 Outpatient GC_GCBZW_Ka mayito_S [facility] [id number] [facility] 2023-06-18 00:00:00 2023-06-18 00:00:00 MARKUS Borrego: [address], [address], [place] [address] , Ph. GC_GCBZW_Ka dicrystala_S [facility] - GC_GCBZW_Naz concepcion Dejan* [id number] [facility] 2023-05-28 00:00:00 2023-05-28 00:00:00 MARKUS Borrego: [address], [place] [address] , Ph. [facility] - GC_GCBZW_Naz jamey Dejan* [id number] [facility] 2023-05-22 00:00:00 2023-05-22 00:00:00 Aruna Julio PA: [address], [place] [address] , Ph. [facility] - GC_GCBZW_Naz Wylie* [id number] [facility] 2020-07-24 13:55:10 2020-07-24 14:10:10 Bleach Maker Visit Pob, Adc Lab Junito Butterfield [facility] 1.840.114 350.1.13.10 4.2.7.2.686 [id number] [facility] 2020-07-24 14:00:00 2020-07-24 14:00:00 Outpatient JUNITO CLARKE [facility] [id number] [facility] 2020-07-24 00:00:00 2020-07-24 00:00:00 Orders Only Doctor Unassigned, [place] [facility] 1.840.114 350.1.13.10 4.2.7.2.686 [id number] [facility] 2020-06-28 08:30:00 2020-06-28 08:30:00 Outpatient R DMITRY BAUM [facility] [id number] [facility] 2020-06-12 00:00:00 2020-06-12 00:00:00 Patient Outreach Moises Pate [facility] 1.2114 350.1.13.10 4.2.7.2.686 [id number] [facility] 2019-12-29 00:00:00 2019-12-29 00:00:00 Telephone Dmitry Baum [facility] 1..114 350.1.13.10 4.2.7.2.686 [id number] [facility] 2019-12-26 13:26:18 2019-12-26 14:24:50 Office Visit Dmitry Baum [facility] 1.2.114 350.1.13.10 4.2.7.2.686 [id number] [facility] 2019-12-26 13:30:00 2019-12-26 13:30:00 Outpatient R DMITRY BAUM [facility] [id number] [facility] 2019-12-26 00:00:00 2019-12-26 00:00:00 Orders Only Doctor Unassigned, [place] [facility] 1.2114 350.1.13.10 4.2.7.2.686 [id number] [facility] 2019-12-21 09:00:00 2019-12-21 09:00:00 Outpatient R DMITRY BAUM [facility] [id number] [facility] 2019-11-23 10:44:39 2019-11-23 11:42:21 Office Visit Dmitry Baum [facility] 1.2.114 350.1.13.10 4.2.7.2.686 [id number] [facility] 2019-11-23 11:00:00 2019-11-23 11:00:00 Outpatient R DMITRY BAUM [facility] [id number] [facility] 2019-11-23 00:00:00 2019-11-23 00:00:00 Orders Only Doctor Unassigned, [place] [facility] 1.284.114 350.1.13.10 4.2.7.2.686 [id number] [facility] 2019-11-14 14:56:25 2019-11-14 15:11:25 Bleach Maker Visit 2, Adc Lab Dmitry Baum [facility] 1.2840.114 350.1.13.10 4.2.7.2.686 [id number] [facility] 2019-11-14 15:00:00 2019-11-14 15:00:00 Outpatient R DMITRY BAUM [facility] [id number] [facility] 2019-11-09 10:45:26 2019-11-14 13:51:18 Initial Visit Dmitry Baum [facility] Building 1..840.114 350.1.13.10 4.2.7.2.686 [id number] 134 [id number] [facility] 2019-11-11 09:44:51 2019-11-11 09:59:51 Bleach Maker Visit 2, Adc Lab Keren Sandoval [facility] Building 1.2.840.114 350.1.13.10 4.2.7.2.686 [id number] [facility] 2019-11-11 09:00:00 2019-11-11 09:00:00 Outpatient R [facility] [id number] [facility] 2019-11-09 11:42:30 2019-11-09 11:57:30 Bleach Maker Visit 2, Adc Lab Dimtry Baum [facility] Building 1.2.840.114 350.1.13.10 4.2.7.2.686 [id number] [facility] 2019-11-09 10:45:00 2019-11-09 10:45:00 Outpatient R DMITRY BAUM [facility] [id number] [facility] 2019-11-09 00:00:00 2019-11-09 00:00:00 Orders Only Doctor Unassigned, [place] [facility] 1.0.114 350.1.13.10 4.2.7.2.686 [id number] [id number] [facility] 2019-09-27 14:30:00 2019-09-27 14:30:00 Outpatient R [facility] [id number] [facility] 2019-09-08 13:15:00 2019-09-08 13:15:00 Outpatient R ANKUR ALEJANDRO [facility] [id number] [facility] 2019-08-26 15:45:00 2019-08-26 15:45:00 Outpatient R ANKURALEJANDRO [facility] [id number] [facility] 2019-08-25 09:45:00 2019-08-25 09:45:00 Outpatient R ANKUR ALEJANDRO [facility] [id number] [facility] 2019-07-29 00:29:00 2019-07-29 21:23:00 Hospital Encounter Dmitry Baum [facility] 1..114 350.1.13.10 4.2.7.2.686 [id number] [facility] 2019-07-28 14:33:59 2019-07-28 15:35:25 [facility] 1..114 350.1.13.10 4.2.7.2.686 [id number] [facility] 2019-07-28 14:15:00 2019-07-28 14:15:00 Outpatient R ALEJANDRO PASCUAL [facility] [id number] [facility] 2019-07-21 15:40:37 2019-07-21 15:55:37 Bleach Maker Visit 2, Adc Lab Alejandro Pascual [facility] Profess[facility]al Building 1.2.840.114 350.1.13.10 4.2.7.2.686 [id number] [facility] 2019-07-21 14:36:52 2019-07-21 15:19:30 Routine Visit Alejandro Pascual [facility] Building 1.2.840.114 350.1.13.10 4.2.7.2.686 [id number] [facility] 2019-07-21 14:45:00 2019-07-21 14:45:00 Outpatient R ALEJANDRO [facility] [id number] [facility] 2019-07-21 00:00:00 2019-07-21 00:00:00 Orders Only Doctor Unassigned, [place] [facility] 1.2.840.114 350.1.13.10 4.2.7.2.686 [id number] [id number] [facility] 2019-07-21 00:00:00 2019-07-21 00:00:00 [facility] 1.2.840.114 350.1.13.10 4.2.7.2.686 [id number] [facility] 2019-07-07 13:00:00 2019-07-07 13:00:00 Outpatient R ALEJANDRO [facility] [id number] [facility] 2019-07-04 07:57:00 2019-07-04 12:42:00 Hospital Encounter Alejandro Pascual [facility] 1.2.840.114 350.1.13.10 4.2.7.2.686 [id number] [facility] 2019-06-28 07:58:30 2019-06-28 13:10:00 Hospital Encounter Dmitry Baum Lucy [facility] 1.2.840.114 350.1.13.10 4.2.7.2.686 [id number] [facility] 2019-06-25 00:00:00 2019-06-25 00:00:00 Telephone Alejandro Pascual [facility] Building 1.2.840.114 350.1.13.10 4.2.7.2.686 [id number] [facility] 2019-06-21 22:40:00 2019-06-22 04:00:00 Hospital Encounter Dmitry Baum [facility] 1.2.840.114 350.1.13.10 4.2.7.2.686 [id number] [facility] 2019-06-20 07:58:00 2019-06-20 13:35:00 Hospital Encounter Alejandro Pascual [facility] 1.2.840.114 350.1.13.10 4.2.7.2.686 [id number] [facility] 2019-06-18 00:00:00 2019-06-18 00:00:00 Telephone Ankur Alejandro [facility] Building 1.2.840.114 350.1.13.10 4.2.7.2.686 [id number] [facility] 2019-06-18 00:00:00 2019-06-18 00:00:00 Telephone Alejandro Pascual [facility] Building 1.2.840.114 350.1.13.10 4.2.7.2.686 [id number] [facility] 2019-06-17 12:26:18 2019-06-17 12:41:18 Bleach Maker Visit 1, Adc Lab Alejandro Pascual [facility] 1.2.840.114 350.1.13.10 4.2.7.2.686 [id number] [facility] 2019-06-17 11:30:55 2019-06-17 12:09:04 Routine Visit Alejandro Pascual [facility] Building 1.2.840.114 350.1.13.10 4.2.7.2.686 [id number] [facility] 2019-06-17 11:30:00 2019-06-17 11:30:00 Outpatient R ANKUR [facility] [id number] [facility] 2019-06-17 00:00:00 2019-06-17 00:00:00 Orders Only Doctor Unassigned, [place] [facility] 1.2.840.114 350.1.13.10 4.2.7.2.686 [id number] [id number] [facility] 2019-06-08 00:00:00 2019-06-08 00:00:00 Orders Only Doctor Unassigned, [place] [facility] 1.2.840.114 350.1.13.10 4.2.7.2.686 [id number] [facility] 2019-06-03 12:33:53 2019-06-03 12:48:53 Bleach Maker Visit Pob, Adc Lab Main Ankur [facility] Building 1.2.840.114 350.1.13.10 4.2.7.2.686 [id number] [facility] 2019-06-03 11:17:45 2019-06-03 12:05:55 Routine Visit Alejandro Pascual [facility] Building 1.2.840.114 350.1.13.10 4.2.7.2.686 [id number] [facility] 2019-06-03 11:15:00 2019-06-03 11:15:00 Outpatient R ALEJANDRO [facility] [id number] [facility] 2019-05-26 00:00:00 2019-05-26 00:00:00 Case Management Alejandro [facility]ascual [facility] 1.2840.114 350.1.13.10 4.2.7.2.686 [id number] [facility] 2019-05-19 10:59:15 2019-05-19 13:18:04 Bleach Maker Visit Pob, Adc Lab Main Alejandro Pascual [facility] Building 1.2.114 350.1.13.10 4.2.7.2.686 [id number] [facility] 2019-05-19 09:40:32 2019-05-19 10:40:02 Routine Visit Alejandro Pascual [facility] Building 1.20.114 350.1.13.10 4.2.7.2.686 [id number] [facility] 2019-05-19 09:45:00 2019-05-19 09:45:00 Outpatient R ALEJANDRO [facility] [id number] [facility] 2019-05-19 00:00:00 2019-05-19 00:00:00 Telephone Billie Scott [facility] COMPUTER [facility] 1.20.114 350.1.13.10 4.2.7.2.686 [id number] [facility] 2019-05-03 00:00:00 2019-05-03 00:00:00 Case Management Alejandro Pascual [facility] nal Building 1.2840.114 350.1.13.10 4.2.7.2.686 [id number] [facility] 2019-04-21 14:44:03 2019-04-21 15:42:12 Initial Visit [facility] 1.2.840.114 350.1.13.10 4.2.7.2.686 [id number] 134 [id number] [facility] 2019-04-21 00:00:00 2019-04-21 00:00:00 Orders Only Doctor Unassigned, [place] [facility] 1.2840.114 350.1.13.10 4.2.7.2.686 [id number] [id number] [facility] 2019-04-15 12:59:50 2019-04-15 14:03:45 Routine Visit Billie Scott [facility] COMPUTER [facility] 1..840.114 350.1.13.10 4.2.7.2.686 [id number] [facility] 2018-12-07 00:00:00 2018-12-07 00:00:00 Orders Only Doctor Unassigned, [place] [facility] 1.2840.114 350.1.13.10 4.2.7.2.686 [id number] [id number] [facility] Results Test Description Test Time Test Comments Results Result Comments Source Tissue Pathology biopsy report 00:00:00 Clinical InformationPathologistA SourceA Gross DescriptionA DiagnosisB SourceB Gross DescriptionB DiagnosisC SourceC Gross DescriptionC DiagnosisD SourceD Gross DescriptionD Diagnosis [facility], aptima high 16/18,[id number] 00:00:00* Test Item Value Reference Range Interpretation Comme nts HPV aptima (test code = HPV aptima) Positive negative A [facility] genotypes 16, 18, 45, unspecified [id number] 00:00:00 * Test Item Value Reference Range Interpretation Comme nts HPV genotype 16 (test code = HPV genotype 16) Negative negative HPV genotype 18,45 (test cod e = HPV genotype 18,45) Negative negative [facility] Medicaligp,rfxaptima HPV all,16/18,[id number] 00:00:00* Test Item Value Reference Range Interpretation Comme nts igp,rfxaptima HPV all,16/18, 45 (test code = igp,rfxaptima HPV all,16/18,45) ASC-H A [facility] MedicalHepatitis B virus surface Ag [Presence] in Serum or Plasma by [id number] 00:00:00* Test Item Value Reference Range Interpretation Comme nts HBsAg screen (test code = HB sAg screen) NEGATIVE negative [facility]HCV antibody rfx to quant [id number] 00:00:00* Test Item Value Reference Range Interpretation Comme nts HCV Ab (test code = HCV Ab) NON REACTIVE non reactive [facility]HIV Ab/P24 Ag with [id number] 00:00:00* Test Item Value Reference Range Interpretation Comme nts HIV Ab/P24 Ag screen (test c ode = HIV Ab/P24 Ag screen) NON REACTIVE non reactive [facility] MedicalReagin Ab [Presence] in Serum by [id number] 00:00:00* Test Item Value Reference Range Interpretation Comme nts RPR (test code = RPR) NON REACTIVE non reactive [facility] Medicalinterpretation:2024-08-23 00:00:00* Test Item Value Reference Range Interpretation Comme [facility] interpretation: (test code = interpretation:) Comment [facility] Medicalaptima swab vaginitis ([id number]) 2024-08-23 00:00:00* Test Item Value Reference Range Interpretation Comme nts bacterial vaginosis (test co de = bacterial vaginosis) BV POS negative A krysten species (test code = krysten species) C. SPP POS negative A krysten glabrata (test code = krysten glabrata) C. GLA NEG negative trichomonas vaginalis (CV/TV ) (test code = trichomonas vaginalis (CV/TV)) TRICH NEG negative [facility] MedicalChlamydia trachomatis and Neisseria gonorrhoeae rRNA panel - Specimen by SAGE with probe [id number] 00:00:00* Test Item Value Reference Range Interpretation Comme nts aptima combo 2 swab (CT) (te st code = aptima combo 2 swab (CT)) CT POS negative A aptima combo 2 swab (GC) (te st code = aptima combo 2 swab (GC)) GC NEG negative [facility] MedicalSCANNED LAB [id number] 18:16:05Ordered by an unspecified provider.[facility] Urinalysis w/o Specific [place] 2024-01-25 14:11:00* Test Item Value Reference Range Interpretation Comme nts POCT PH U (test code = 3254) 5 mg/dl 5-8 POCT U LEUK EST (test code = 3263) negative Negative - Negative POCT U NIT (test code = 3262) negative Negative - Negati ve POCT U PROT (test code = 3259) trace Negative - Negat clemente POCT U GLU (test code = 3256) negative Negative - Negati ve POCT U KETONE (test code = 3258) negaitve Negative - Neg ative POCT U BLD (test code = 3257) negative Negative - Negati ve [facility] Pathology biopsy [id number] 00:00:00Clinical InformationPathologistA SourceA Gross DescriptionA DiagnosisB SourceB Gross DescriptionB DiagnosisC SourceC Gross DescriptionC DiagnosisPrivia Medicalpregnancy test, [id number] 11:50:06* Test Item Value Reference Range Interpretation Comme nts HCG (test code = HCG) negative [facility] Medicaltrichomonas vaginalis swab (swhl) 2023-05-27 00:00:00* Test Item Value Reference Range Interpretation Comme nts trichomonas vaginalis swab ( test code = trichomonas vaginalis swab) trich neg negative [facility] MedicalChlamydia trachomatis and Neisseria gonorrhoeae rRNA panel - Specimen by SAGE with probe [id number] 00:00:00* Test Item Value Reference Range Interpretation Comme nts aptima combo 2 swab (CT) (te st code = aptima combo 2 swab (CT)) CT neg negative aptima combo 2 swab (GC) (te st code = aptima combo 2 swab (GC)) GC neg negative [facility] MedicalPOCT [id number] 19:03:00* Test Item Value Reference Range Interpretation Comme nts POCT PREG (test code = 1605) Negative On board controls acceptable with C Line (test code = 3574) Yes POCT PREG LOT # (test code = 3575) POCT PREG TEST DATE (test code = 3576) NANCY (test code = NANCY) accurate developme nt and interpretation of all internal controls [facility] OB [id number] 16:34:00Limited USG for FHT: ?Single live IUP measured 6 1/7 weeks, consistent with LMP. ?Will date by thisultrasound unless clinically indicated otherwise Dmitry Baum MD ?11/23/2019 ?11:33 [facility] OB TRANSVAGINAL 2019-11-23 16:34:00Limited USG for FHT: ?Single live IUP measured 6 1/7 weeks, consistent with LMP. ?Will date by thisultrasound unless clinically indicated otherwise Dmitry Baum MD ?11/23/2019 ?11:33 [facility] HCG, QUANTITATIVE, [id number] 19:06:00* Test Item Value Reference Range Interpretation Comme nts BETA HCG (test code = 8592656876) See_Comment [Automated messa ge] The system which generated this result transmitted reference range: Non- female and male patients: <5 mIU/mL. The reference range was not used to interpret this result as normal/abnormal. NANCY (test code = NANCY) Gestational Age ?Range (mIU/mL) 1-10 ?Weeks ?[id number] Weeks ?64503-12033433-47 Weeks ?4226-67546961-70 Weeks ?4340-200554 Biotin has been reported to cause a negative bias, interpret results relative to patient's use of biotin. [facility] [id number] 16:24:00* Test Item Value Reference Range Interpretation Comme nts POCT PREG (test code = 1605) Positive On board controls acceptable with C Line (test code = 3574) Yes POCT PREG LOT # (test code = 3575) POCT PREG TEST DATE ( test code = 3576) [facility] [id number] 16:24:00* Test Item Value Reference Range Interpretation Comme nts POCT PREG (test code = 1605) Positive On board controls acceptable with C Line (test code = 3574) Yes POCT PREG LOT # (test code = 3575) POCT PREG TEST DATE ( test code = 3576) [facility] [id number] 16:24:00* Test Item Value Reference Range Interpretation Comme nts POCT PREG (test code = 1605) Positive On board controls acceptable with C Line (test code = 3574) Yes POCT PREG LOT # (test code = 3575) POCT PREG TEST DATE ( test code = 3576) [facility] URINALYSIS W/O SPECIFIC [id number] 16:23:00* Test Item Value Reference Range Interpretation Comme nts POCT PH U (test code = 3254) n/a 5-8 POCT U LEUK EST (test code = 3263) n/a Negative - N egative POCT U NIT (test code = 3262) /na Negative - Negati ve POCT U PROT (test code = 3259) neg Negative - Negat clemente POCT U GLU (test code = 3256) neg Negative - Negati ve POCT U KETONE (test code = 3258) n/a Negative - Neg ative POCT U BLD (test code = 3257) n/a Negative - Negati ve [facility] URINALYSIS W/O SPECIFIC [id number] 16:23:00* Test Item Value Reference Range Interpretation Comme nts POCT PH U (test code = 3254) n/a 5-8 POCT U LEUK EST (test code = 3263) n/a Negative - N egative POCT U NIT (test code = 3262) /na Negative - Negati ve POCT U PROT (test code = 3259) neg Negative - Negat clemente POCT U GLU (test code = 3256) neg Negative - Negati ve POCT U KETONE (test code = 3258) n/a Negative - Neg ative POCT U BLD (test code = 3257) n/a Negative - Negati ve [facility] URINALYSIS W/O SPECIFIC [id number] 16:23:00* Test Item Value Reference Range Interpretation Comme nts POCT PH U (test code = 3254) n/a 5-8 POCT U LEUK EST (test code = 3263) n/a Negative - N egative POCT U NIT (test code = 3262) /na Negative - Negati ve POCT U PROT (test code = 3259) neg Negative - Negat clemente POCT U GLU (test code = 3256) neg Negative - Negati ve POCT U KETONE (test code = 3258) n/a Negative - Neg ative POCT U BLD (test code = 3257) n/a Negative - Negati ve [facility]villeCBC WITH [id number] 23:43:00* Test Item Value Reference Range Interpretation Comme nts WBC (test code = 6690-2) See_Comment H [Automated message] The system which generated this result transmitted reference range: 4.30 - 11.10 10*3/?L. The reference range was not used to interpret this result as normal/abnormal. RBC (test code = 789-8) See_Comment L [Automated message] The system which generated this result transmitted reference range: 3.93 - 5.25 10*6/?L. The reference range was not used to interpret this result as normal/abnormal. HGB (test code = 718-7) 10.2 g/dL 11.6-15 L HCT (test code = 4544-3) 32.7 % 35.7-45.2 L MCV (test code = 787-2) 85.8 fL 80.6-95.5 MCH (test code = 785-6) 26.8 pg 25.9-32.8 MCHC (test code = 786-4) 31.2 g/dL 31.6-35.1 L RDW-SD (test code = 20796-1) 74.0 fL 39-49.9 H RDW-CV (test code = 788-0) 23.9 % 12-15.5 H PLT (test code = 777-3) See_Comment [Automated message] The system which generated this result transmitted reference range: 166 - 358 10*3/?L. The reference range was not used to interpret this result as normal/abnormal. MPV (test code = 35854-0) 10.6 fL 9.5-12.9 NRBC/100 WBC (test code = 2565952349) See_Comment [Automated message] The system which generated this result transmitted reference range: 0.0 - 10.0 /100 WBCs. The reference range was not used to interpret this result as normal/abnormal. NRBC x10^3 (test code = 8719744171) <0.01 See_Comment [Automated message] The system which generated this result transmitted reference range: 10*3/?L. The reference range was not used to interpret this result as normal/abnormal. GRAN MAT (NEUT) % (test code = 770-8) 84.0 % IMM GRAN % (test code = 2415672646) 0.90 % LYMPH % (test code = 736-9) 8.6 % MONO % (test code = 5905-5) 5.9 % EOS % (test code = 713-8) 0.3 % BASO % (test code = 706-2) 0.3 % GRAN MAT x10^3(ANC) (test code = 8810977083) 20.42 10*3/uL 1.88-7.09 H IMM GRAN x10^3 (test code = 5197240041) 0.21 10*3/uL 0-0.06 H LYMPH x10^3 (test code = 731-0) 2.10 10*3/uL 1.32-3.29 MONO x10^3 (test code = 742-7) 1.43 10*3/uL 0.33-0.92 H EOS x10^3 (test code = 711-2) 0.07 10*3/uL 0.03-0.39 BASO x10^3 (test code = 704-7) 0.07 10*3/uL 0.01-0.07 Lab Interpretation (test code = 45884-3) Abnormal [facility]villeRH (D) IMMUNE [id number] 17:05:06* Test Item Value Reference Range Interpretation Comme nts RHIG CANDIDATE? (test code = 5055) No- see comment Patient is not a candidate for RhIg- Patient is Rh Positive.Performed at [facility] Laboratory Services - [facility] Blood [address] [place] [address]Knlq Free: [phone] No. [id number] [facility] GreenvilleHepatitis B Surface [id number] 11:11:00 * Test Item Value Reference Range Interpretation Comme nts HBsAg Semi-Quantitative (emmanuel t code = 5195-3) Negative Negative [facility] [id number] 11:01:00* Test Item Value Reference Range Interpretation Comme nts BASE EXCESS, CORD (test code = 6409220953) mEq/L AC PH, CORD (BEAKER) (test code = 8664546474) 7.18-7.38 L PC02, CORD (test code = 7936782228) See_Comment H [Automated messa ge] The system which generated this result transmitted reference range: 32 - 66 mmHg. The reference range was not used to interpret this result as normal/abnormal. PO2, CORD (test code = 4168642814) See_Comment [Automated messa ge] The system which generated this result transmitted reference range: 10 - 30 mmHg. The reference range was not used to interpret this result as normal/abnormal. BICARBONATE, CORD (test code = 8153545057) See_Comment [Automated me ssage] The system which generated this result transmitted reference range: 17 - 27 mEq/L. The reference range was not used to interpret this result as normal/abnormal. Lab Interpretation (test code = 76089-6) Abnormal [facility] GreenvilleVenous Cord [id number] 10:59:00* Test Item Value Reference Range Interpretation Comme nts VENOUS BASE EXCESS, CORD (test code = 4435440151) mEq/L VENOUS PH, CORD (test code = 0531090130) 7.25-7.45 VENOUS PC02, CORD (test code = 8104326145) See_Comment [Automated messa ge] The system which generated this result transmitted reference range: 27 - 49 mmHg. The reference range was not used to interpret this result as normal/abnormal. VENOUS PO2, CORD (test code = 3363032890) See_Comment [Automated me ssage] The system which generated this result transmitted reference range: 17 - 41 mmHg. The reference range was not used to interpret this result as normal/abnormal. VENOUS BICARBONATE, CORD (test code = 5056655946) See_Comment [Automated messa ge] The system which generated this result transmitted reference range: 12 - 29 mEq/L. The reference range was not used to interpret this result as normal/abnormal. [facility] GreenvilleHIV 1/2 AG-AB WITH [id number] 09:48:00* Test Item Value Reference Range Interpretation Comme nts HIV Semi-quantitative (test code = 29629-6) Negative Negative NANCY (test code = NANCY) Non-reactive for HIV-1 antigen and HIV-1/HIV-2 antibodies. ?No laboratory evidence of HIV infection. ?Repeat in 2-4 weeks if acute HIV infection is suspected. [facility] GreenvilleType and Screen - ONCE [id number] 07:33:36 * Test Item Value Reference Range Interpretation Comme nts ABO & RH (test code = 20) O Positive Performed at [facility] Blood [address] [address] Free: [phone] No. [id number] IAT (test code = 1185) Negative Performed at [facility] Blood [address] [place], [place] [address]Toll Free: [phone] No. [id number] [facility] GreenvilleADC OR RALPH ONLY - [id number] 07:31:00* Test Item Value Reference Range Interpretation Comme nts RPR (Qualitative) (test code = 50992-5) Nonreactive Nonreactive Lab Interpretation (test cod e = 50347-8) Normal [facility] GreenvilleCORONAVIRUS COVID-19 [id number] 07:11:00* Test Item Value Reference Range Interpretation Comme nts SARS-CoV-2 (test code = 50240-5) Not Detected Not Detected NANCY (test code = NANCY) ID NOW COVID-19 As say is an isothermal nucleic acid amplification test intended for the qualitative detection of nucleic acid from SARS-CoV-2 viral RNA in nasopharyngeal (CUE WORKER) specimens. It is used under Emergency Use Authorization (EUA) by FDA. The limit of detection (LOD) of the assay is 125 Genome Equivalents/mL. A positive result is indicative of the presence of SARS-CoV-2 RNA. ?Clinical correlation with patient history and other diagnostic information is necessary to determine patient infection status. A negative (Not Detected) result does not preclude SARS-CoV-2 infection. Clinical correlation with patient history and other diagnostic information should be used in patient management decisions. Invalid: Please collect a new specimen for repeat patient testing if clinically indicated. Lab Interpretation (test code = 07362-0) Normal [facility] WITH [id number] 06:47:00* Test Item Value Reference Range Interpretation Comme nts WBC (test code = 6690-2) See_Comment H [Automated messa ge] The system which generated this result transmitted reference range: 4.30 - 11.10 10*3/?L. The reference range was not used to interpret this result as normal/abnormal. RBC (test code = 789-8) See_Comment L [Automated messa ge] The system which generated this result transmitted reference range: 3.93 - 5.25 10*6/?L. The reference range was not used to interpret this result as normal/abnormal. HGB (test code = 718-7) 9.2 g/dL 11.6-15 L HCT (test code = 4544-3) 29.7 % 35.7-45.2 L MCV (test code = 787-2) 85.8 fL 80.6-95.5 MCH (test code = 785-6) 26.6 pg 25.9-32.8 MCHC (test code = 786-4) 31.0 g/dL 31.6-35.1 L RDW-SD (test code = 95024-7) 74.3 fL 39-49.9 H RDW-CV (test code = 788-0) 23.7 % 12-15.5 H PLT (test code = 777-3) See_Comment [Automated messa ge] The system which generated this result transmitted reference range: 166 - 358 10*3/?L. The reference range was not used to interpret this result as normal/abnormal. MPV (test code = 24274-4) 10.3 fL 9.5-12.9 NRBC/100 WBC (test code = 1889116302) See_Comment [Automated [employer] ssage] The system which generated this result transmitted reference range: 0.0 - 10.0 /100 WBCs. The reference range was not used to interpret this result as normal/abnormal. NRBC x10^3 (test code = 9232482046) <0.01 See_Comment [Automated messa ge] The system which generated this result transmitted reference range: 10*3/?L. The reference range was not used to interpret this result as normal/abnormal. GRAN MAT (NEUT) % (test code = 770-8) 74.7 % IMM GRAN % (test code = 9972042111) 1.30 % LYMPH % (test code = 736-9) 15.2 % MONO % (test code = 5905-5) 7.9 % EOS % (test code = 713-8) 0.7 % BASO % (test code = 706-2) 0.2 % GRAN MAT x10^3(ANC) (test code = 5197095702) 8.37 10*3/uL 1.88-7.09 H IMM GRAN x10^3 (test code = 6956279655) 0.14 10*3/uL 0-0.06 H LYMPH x10^3 (test code = 731-0) 1.70 10*3/uL 1.32-3.29 MONO x10^3 (test code = 742-7) 0.88 10*3/uL 0.33-0.92 EOS x10^3 (test code = 711-2) 0.08 10*3/uL 0.03-0.39 BASO x10^3 (test code = 704-7) <0.03 0.01-0.07 Lab Interpretation (test code = 07913-6) Abnormal [facility] ONLY - FERN [id number] 06:14:00* Test Item Value Reference Range Interpretation Comme nts Fern Test (test code = 1717970547) Positive [facility] SPECIFIC [id number] 20:10:00* Test Item Value Reference Range Interpretation Comme nts POCT PH U (test code = 3254) n/a 5-8 POCT U LEUK EST (test code = 3263) n/a Negative - N egative POCT U NIT (test code = 3262) n/a Negative - Negati ve POCT U PROT (test code = 3259) trace Negative - Negat clemente POCT U GLU (test code = 3256) neg Negative - Negati ve POCT U KETONE (test code = 3258) n/a Negative - Neg ative POCT U BLD (test code = 3257) n/a Negative - Negati ve [facility] STREPTOCOCCUS BY [id number] 15:49:00* Test Item Value Reference Range Interpretation Comme nts Group B Streptococcus by PCR (test code = 90541-5) Negative Negative Lab Interpretation (test cod e = 55609-7) Normal [facility]villeGC & CHLAMYDIA AMPLIFIED [id number] 17:50:00* Test Item Value Reference Range Interpretation Comme nts C. trachomatis Nucleic Acid (test code = 63702-2) Negative Negative N. gonorrhoeae Nucleic Acid (test code = 41269-3) Negative Negative Lab Interpretation (test cod e = 13727-5) Normal [facility] W/O SPECIFIC [id number] 19:58:00* Test Item Value Reference Range Interpretation Comme nts POCT PH U (test code = 3254) n/a 5-8 POCT U LEUK EST (test code = 3263) n/a Negative - N egative POCT U NIT (test code = 3262) n/a Negative - Negati ve POCT U PROT (test code = 3259) neg Negative - Negat clemente POCT U GLU (test code = 3256) neg Negative - Negati ve POCT U KETONE (test code = 3258) n/a Negative - Neg ative POCT U BLD (test code = 3257) n/a Negative - Negati ve Lab Interpretation (test cod e = 13269-1) Normal [facility]2020-04-01 07:53:00* Test Item Value Reference Range Interpretation Comme nts APPEARANCE (test code = 5732147455) Clear Clear COLOR (test code = 0223555890) Yellow Yellow PH (test code = 0392018404) 4.8-8.0 SP GRAVITY (test code = 5894462622) 1.003-1.030 GLU U QUAL (test code = 4388155237) Normal Normal BLOOD (test code = 4592577671) 2+ Negative A KETONES (test code = 4510102143) 20 mg/dL Negative A PROTEIN (test code = 2887-8) Negative Negative UROBILIN (test code = 0869184840) 2.0 mg/dL Normal A BILIRUBIN (test code = 0301215746) Negative Negative NITRITE (test code = 4665600827) Negative Negative LEUK MATTHEW (test code = 9842131105) Negative Negative RBC/HPF (test code = 3201057260) See_Comment H [Automated messa ge] The system which generated this result transmitted reference range: 0 - 3 HPF. The reference range was not used to interpret this result as normal/abnormal. WBC/HPF (test code = 5038029819) See_Comment [Automated messa ge] The system which generated this result transmitted reference range: 0 - 5 HPF. The reference range was not used to interpret this result as normal/abnormal. BACTERIA (test code = 0717506537) Negative Negative MUCOUS (test code = 5226547711) Moderate Negative LPF A YEAST BUD (test code = 2658771709) <1 See_Comment [Automated messa ge] The system which generated this result transmitted reference range: <=1 HPF. The reference range was not used to interpret this result as normal/abnormal. Lab Interpretation (test code = 96732-7) Abnormal [facility] - WET [id number] 05:55:00* Test Item Value Reference Range Interpretation Comme nts Wet Prep (test code = 2138207233) No Trichomonas vaginalis present BACTERIA [facility]2020-04-01 05:51:00* Test Item Value Reference Range Interpretation Comme nts APPEARANCE (test code = 4050946513) Cloudy Clear A COLOR (test code = 7767402584) Yellow Yellow PH (test code = 1195338917) 4.8-8.0 SP GRAVITY (test code = 4382690849) 1.003-1.030 GLU U QUAL (test code = 7508411753) Normal Normal BLOOD (test code = 4067896493) 1+ Negative A KETONES (test code = 8140117183) Negative Negative PROTEIN (test code = 2887-8) Negative Negative UROBILIN (test code = 8731011760) 2.0 mg/dL Normal A BILIRUBIN (test code = 5505161545) Negative Negative NITRITE (test code = 9972771392) Negative Negative LEUK MATTHEW (test code = 5568362124) 25/uL Negative A RBC/HPF (test code = 2704080022) See_Comment H [Automated messa ge] The system which generated this result transmitted reference range: 0 - 3 HPF. The reference range was not used to interpret this result as normal/abnormal. WBC/HPF (test code = 5667585000) See_Comment H [Automated messa ge] The system which generated this result transmitted reference range: 0 - 5 HPF. The reference range was not used to interpret this result as normal/abnormal. BACTERIA (test code = 0149559209) Moderate Negative A MUCOUS (test code = 7844687908) Slight Negative LPF A AMORPHOUS (test code = 9072646276) Moderate Rare HPF A SQ EPITH (test code = 0114208608) HPF Lab Interpretation (test code = 51950-9) Abnormal [facility] URINALYSIS W/O SPECIFIC [id number] 16:38:00* Test Item Value Reference Range Interpretation Comme nts POCT PH U (test code = 3254) n/a 5-8 POCT U LEUK EST (test code = 3263) n/a Negative - N egative POCT U NIT (test code = 3262) n/a Negative - Negati ve POCT U PROT (test code = 3259) neg Negative - Negat clemente POCT U GLU (test code = 3256) neg Negative - Negati ve POCT U KETONE (test code = 3258) n/a Negative - Neg ative POCT U BLD (test code = 3257) n/a Negative - Negati ve Lab Interpretation (test cod e = 10168-2) Normal [facility] URINALYSIS W/O SPECIFIC [id number] 16:44:00* Test Item Value Reference Range Interpretation Comme nts POCT PH U (test code = 3254) n/s 5-8 POCT U LEUK EST (test code = 3263) n/a Negative - N egative POCT U NIT (test code = 3262) n/a Negative - Negati ve POCT U PROT (test code = 3259) neg Negative - Negat clemente POCT U GLU (test code = 3256) neg Negative - Negati ve POCT U KETONE (test code = 3258) n/a Negative - Neg ative POCT U BLD (test code = 3257) n/a Negative - Negati ve Lab Interpretation (test cod e = 59578-2) Normal [facility] URINALYSIS W SPECIFIC [id number] 19:31:00* Test Item Value Reference Range Interpretation Comme nts POCT U SP GRAV (test code = 3255) . 1.005-1.025 POCT PH U (test code = 3254) . 5-8 POCT U LEUK EST (test code = 3263) . Negative - N egative POCT U NIT (test code = 3262) . Negative - Negati ve POCT U PROT (test code = 3259) Trace Negative - Negat clemente POCT U GLU (test code = 3256) Neg Negative - Negati ve POCT U KETONE (test code = 3258) . Negative - Neg ative POCT U UROBILI (test code = 3260) . 0.2-1 POCT U BILI (test code = 3261) . Negative - Negat clemente POCT U BLD (test code = 3257) . Negative - Negati ve POCT U COLOR (test code = 3266) POCT U APPEAR (test code = 3267) [facility] URINALYSIS W SPECIFIC [id number] 19:31:00* Test Item Value Reference Range Interpretation Comme nts POCT U SP GRAV (test code = 3255) . 1.005-1.025 POCT PH U (test code = 3254) . 5-8 POCT U LEUK EST (test code = 3263) . Negative - N egative POCT U NIT (test code = 3262) . Negative - Negati ve POCT U PROT (test code = 3259) Trace Negative - Negat clemente POCT U GLU (test code = 3256) Neg Negative - Negati ve POCT U KETONE (test code = 3258) . Negative - Neg ative POCT U UROBILI (test code = 3260) . 0.2-1 POCT U BILI (test code = 3261) . Negative - Negat clemente POCT U BLD (test code = 3257) . Negative - Negati ve POCT U COLOR (test code = 3266) POCT U APPEAR (test code = 3267) [facility] Notes Date/Time Note Provider Source 2024-02-23 11:09:24 Spoke with patient. Patient would like Chandrika to complete colposcopy. Chandrika agrees to plan of care. Patient rescheduled for colposcopy with Chandrika on 03/01/24. LMP 02/19 and is currently heavy. No other questions or concerns at this time. Geraldo Francois RN 02/23/2024 11:10 AM OY Francois RN [facility] 2024-02-23 09:05:42 Attempted to contact patient. No answer, Vm left. Patient will need colposcopy instead of LEEP per Chandrika Ivy. Patient will also complete procedures with Dr Baum. [employer] [facility] 2024-02-23 08:56:53 Speaking with provider. LISETH PARADA RN 02/23/2024 8:57 AM OY Parada RN [facility] 2024-02-22 16:53:37 [address] Tolliver is a 23 year old female Pt has a LEEP scheduled for 02/23/24. Pt stated that she started her period and she is not sure if this will affect the procedure or not. Pt wants to know if she can still come or if she needs to reschedule. Please advise OY Chung [facility] 2024-02-09 15:22:43 Name and verified, pt is aware of pap results and recommendation for a leep procedure. Pt verbalized understanding Appt made for 02/22 Barbie Thomas RN 02/09/2024 3:22 PM [facility] 2024-02-09 15:21:35 Name and verified, pt is aware of pap results and recommendation for a leep procedure. Pt verbalized understanding Appt made for 02/22 Barbie Thomas RN 02/09/2024 3:22 PM [facility] 2024-02-09 13:20:15 Court Tolliver is a 23 year old female pt returned call to discuss results. Would like a call back. Available till 4pm. [facility] Ines Albrecht [facility] 2024-02-09 13:15:10 Attempted to reach pt, no answer, left a vm Barbie Thomas RN 02/09/2024 1:15 PM [facility] 2024-02-09 12:47:02 Patient returned call from nurse. Please assist and thank you, [facility] Ngoc Rivas [facility] 2024-02-09 12:38:42 Attempted to reach pt, no answer, left a vm Barbie Thomas RN 02/09/2024 12:38 PM [facility] 2024-02-08 14:00:17 Attempted to reach pt, no answer, left a vm Barbie Thomas RN 02/08/2024 2:00 PM [facility] 2024-02-08 13:16:29 Record from [facility] Women's Pap 2016- LSIL/HPV-untyped 2019: HSIL ( Dr. Baum)- Colpo 12/2019- 1 and 4 o clock- benign 2020: ASCUS/HPV + 2021 Pap - HSIL- Colpo 04/01/21- NEDA 1-2 09/2021: pap LSIL- HPV, Type 52- Colpo- Non diagnostic for NEDA 1, ECC- neg 12/2022 Pap - HSIL, +HPV- NEDA 2 (12 o'clock and NEDA - 2 o'clock) ECS- Treatment with LEEP recommended. [facility] 2024-02-02 07:57:45 Medical records received from Dr. Roger's office and placed in folder on provider's desk for review and signature. [facility] Cadence Woods [facility] 2024-02-01 16:56:40 Name and verified, pt is aware of [facility] results and medication. Colpo scheduled for pt. Barbie Thomas RN 02/01/2024 4:57 PM [facility] 2024-02-01 16:43:16 Pap result from [facility] received Collection date 01/25/24- HSIL, HPV negative. Pt needs colposcopy. Please assist with appt and may OB Vag path- Positive BV- Rx sent to her pharmacy for treatment. [facility] 2024-02-01 15:36:39 Received lab results via fax, placed on providers desk. OY Mix [facility] 2024-02-01 11:53:40 Name and verified, pt is aware of urine culture results and medication. Pt verbalized understanding. Barbie Thomas RN 02/01/2024 11:54 AM [facility] 2024-02-01 11:49:[address] Tolliver is a 23 year old female Pt returning call regarding results. Would like to speak with someone regarding. OY Whitney [facility] 2024-01-28 16:06:04 Name and verified, pt was informed her labs were sent to an outside lab, [facility]. Results can take up to 2 weeks for results, we will call her once the physician reviews the results. Pt verbalized understanding. Barbie Thomas RN 01/28/2024 4:07 PM [facility] 2024-01-28 15:41:[address] Tolliver is a 23 year old female Pt called and wanted to speak with someone regarding results. Pt would like a retun call. OY Whitney [facility]
[2024-11-11] MEDS ORDERED: KETOROLAC 30 MG/ML INJ ONE (03:40)
[2024-11-11] MEDS ORDERED: ONDANSETRON 4 MG/2 ML VIAL ONE (03:40)
[2024-11-11] MEDS ORDERED: CEFTRIAXONE 1000 MG/VIAL ONE (03:40)
[2024-11-11] MEDS ORDERED: MORPHINE 4 MG/ML SYR ONE (03:40)
[2024-11-11] MEDS ORDERED: NA CHLORIDE 0.9% 1,000 ML ONE (03:41)
[2024-11-11] MEDS ORDERED: FAMOTIDINE 20 MG/2 ML VIAL IV ONE (03:41)
[2024-11-11 04:32] LABS: Absolute Lymphocytes (CBC) 1.5 K/uL (0.7-4.9); Hematocrit 33.2 % (36.0-45.0); Hemoglobin 11.3 g/dL (12.0-15.0); MCH 29.0 pg (27.0-35.0); MCHC 34.0 g/dL (32.0-36.0); MCV 85.5 fL (80-100); MPV 8.0 fL (7.6-11.3); Nucleated RBC Absolute Count 0.0 (0-0); Nucleated Red Blood Cells % 0.0 % (0-0); RBC Red Blood Cell Count 3.89 M/uL (3.86-4.86); White Blood Count 8.30 thou/uL (4.3-10.9)
[2024-11-11 04:39] LABS: ALT/SGPT 18.0 U/L (13-56); AST/SGOT 14.0 U/L (15-37); Albumin 3.4 g/dL (3.4-5.0); Albumin/Globulin Ratio 0.8 (1.1-1.8); Alkaline Phosphatase 64.0 U/L (45-117); Anion Gap 6.7 mEq/L (5.0-15.0); BUN Blood Urea Nitrogen 11.0 mg/dL (7-18); Globulin 4.1 g/dL (2.3-3.5); Glucose Level 110.0 mg/dL (74-106); Lipase 28.0 U/L (13-75); Potassium 3.7 mEq/L (3.5-5.1)
[2024-11-11 05:40] LABS: Sqamous Epithelial <5 /HPF (None Seen); Urine Micro Reflex YN NO BILL MICROSCOPIC
--- NOTE | 2024-11-11 05:46 | ER ---
Nurse's Notes [facility] Name: Nancy Ruby Age: 24 yrs Sex: Female : 2000 Arrival Date: 11/11/2024 Time: 02:35 Bed 6 Private MD: Diagnosis: Acute gastroenteritis, left upper quadrant abdominal pain. Presentation: 11/11 02:50 Chief complaint: Patient states: I had an operation done on my cervix on 10-20-24. I jb4 went back to the 2 weeks later and was told I had an infection and was put on antibiotics. I did not start them until tonight. I have a follow up tomorrow but the pain tonight is unbearable. Coronavirus screen: At this time, the client does not indicate any symptoms associated with coronavirus-19. Ebola Screen: No symptoms or risks identified at this time. Initial Sepsis Screen: Does the patient meet any 2 criteria? No. Patient's initial sepsis screen is negative. Does the patient have a suspected source of infection? No. Patient's initial sepsis screen is negative. Risk Assessment: Do you want to hurt yourself or someone else? Patient reports no desire to harm self or others. Onset of symptoms was November 11, 2024. Transition of care: patient was not received from another setting of care. 02:50 Method Of Arrival: Ambulatory jb4 02:50 Acuity: ADDI 2 jb4 Triage Assessment: 02:52 General: Appears in no apparent distress. comfortable, Behavior is cooperative, jb4 anxious, crying. Pain: Complains of pain in left low back and left mid back Pain radiates to left lower quadrant Pain currently is 10 out of 10 on a pain scale. Quality of pain is described as crampy. Neuro: Level of Consciousness is awake, alert, obeys commands, Oriented to person, place, time, situation. Cardiovascular: Patient's skin is warm and dry. Respiratory: Airway is patent Respiratory effort is even, unlabored, Respiratory pattern is regular, symmetrical. : Reports pain in left flank(s). Derm: Skin is intact, Skin is pink, warm \T\ dry. Musculoskeletal: Circulation, motion, and sensation intact. Range of motion: intact in all extremities. 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 - Infectious Disease History:: Denies. - Social history:: Smoking status: Patient reports the use of cigarette tobacco products, denies chronic smoking, but will smoke occasionally. - Family history:: not pertinent. Screenin:03 [facility] ED Fall Risk Assessment (Adult) History of falling in the last 3 months, ha1 including since admission No falls in past 3 months (0 pts) Confusion or Disorientation No (0 pts) Intoxicated or Sedated No (0 pts) Impaired Gait No (0 pts) Mobility Assist Device Used No (0 pt) Altered Elimination No (0 pt) Score/Fall Risk Level 0 - 2 = Low Risk Oriented to surroundings, Maintained a safe environment, Hourly rounding (assess needs \T\ fall precautionary measures) done. Abuse screen: Denies threats or abuse. Denies injuries from another. Nutritional screening: No deficits noted. Tuberculosis screening: No symptoms or risk factors identified. Assessment: 02:55 General: Appears uncomfortable, Behavior is calm, cooperative. Pain: Complains of pain ha1 in pelvis Pain currently is 10 out of 10 on a pain scale. Quality of pain is described as aching. Neuro: Level of Consciousness is awake, alert, obeys commands, Oriented to person, place, time, situation. Cardiovascular: Capillary refill < 3 seconds Patient's skin is warm and dry. Respiratory: Airway is patent Respiratory effort is even, unlabored, Respiratory pattern is regular, symmetrical. GI: Abdomen is flat, non-distended, Bowel sounds present X 4 quads. : Urine is clear, Reports discharge, from vagina that is yellow, pain in suprapubic area. Derm: Skin is pink, warm \T\ dry. Musculoskeletal: Circulation, motion, and sensation intact. Range of motion: intact in all extremities. 04:00 Reassessment: Patient and/or family updated on plan of care and expected duration. Pain ha1 level reassessed. Patient is alert, oriented x 3, equal unlabored respirations, skin warm/dry/pink. PAIN 3/10 Patient states feeling better. Patient states symptoms have improved. 04:50 Reassessment: Patient and/or family updated on plan of care and expected duration. Pain ha1 level reassessed. Patient is alert, oriented x 3, equal unlabored respirations, skin warm/dry/pink. 06:11 Reassessment: Patient and/or family updated on plan of care and expected duration. Pain ha1 level reassessed. Patient is alert, oriented x 3, equal unlabored respirations, skin warm/dry/pink. Patient states feeling better. Patient states symptoms have improved. Vital Signs: 02:50 BP 114 / 82; Pulse 83; Resp 16; Temp 98.5(O); Pulse Ox 100% on R/A; Weight 48.08 kg jb4 (R); Height 5 ft. 2 in. (R); Pain 10/10; 03:30 BP 104 / 69; Pulse 64; Resp 18 S; Pulse Ox 99% on R/A; ha1 04:30 BP 105 / 61; Pulse 61; Resp 18 S; Pulse Ox 99% on R/A; ha1 05:39 BP 101 / 62; Pulse 68; Resp 17 S; Pulse Ox 99% on R/A; ha1 02:50 Body Mass Index 19.39 (48.08 kg, 157.48 cm) jb4 02:50 Pain Scale: Adult jb4 Mara Coma Score: 20:39 Eye Response: spontaneous(4). Motor Response: obeys commands(6). Verbal Response: sp4 oriented(5). Total: 15. ED Course: 02:18 Inserted saline lock: 20 gauge in right antecubital area, using aseptic technique. ha1 Blood collected. Flushed with 10 mL NS. 02:38 Patient arrived in ED. gm2 02:41 Rahat Johansen MD is Attending Physician. sp4 02:47 Patient has correct armband on for positive identification. Placed in gown. Bed in low ha1 position. Call light in reach. Side rails up X 1. Adult w/ patient. 02:47 Client placed on continuous cardiac and pulse oximetry monitoring. NIBP monitoring ha1 applied. Door closed. Warm blanket given. Pillow given. 02:52 Triage completed. jb4 02:52 Arm band placed on right wrist. jb4 03:37 Peri Shipley RN is Primary Nurse. ha1 05:00 CT Abd/Pelvis - IV Contrast Only In Process Unspecified. EDMS 06:04 Provided Education on: FOLLOW UPS AND MEDICATION ADMINISTRATION . ha1 06:16 No provider procedures requiring assistance completed. IV discontinued, intact, ha1 bleeding controlled, No redness/swelling at site. Pressure dressing applied. Administered Medications: 03:32 Drug: TORadol - Ketorolac IVP 30 mg IVP once Route: IVP; Site: right antecubital; ha1 04:00 Follow up: Response: No adverse reaction; Marked relief of symptoms; Pain is decreased ha1 03:34 Drug: Ondansetron IVP 4 mg IVP once; over 2 minutes Route: IVP; Site: right antecubital;ha1 04:00 Follow up: Response: No adverse reaction; Marked relief of symptoms ha1 03:36 Drug: NS 0.9% IV 1000 ml IV at 1 bolus Per protocol; to be given as a bolus over 60 ha1 minutes Route: IV; Rate: 1 bolus; Site: right antecubital; 06:08 Follow up: Response: No adverse reaction; IV Status: Completed infusion ha1 03:38 Drug: Famotidine IVP 20 mg IVP once; dilute with 10 mL 0.9% NaCl; give over 2 minutes ha1 Route: IVP; Site: right antecubital; 04:00 Follow up: Response: No adverse reaction; Marked relief of symptoms ha1 03:40 Drug: morphine IVP or IV 4 mg IVP once over 4 mins Route: IVP; Infused Over: 4 mins; ha1 Site: right antecubital; 04:00 Follow up: Response: No adverse reaction; Marked relief of symptoms; Pain is decreased; ha1 RASS: Alert and Calm (0) 03:40 Drug: Droperidol IVP 2.5 mg IVP once Route: IVP; Site: right antecubital; ha1 04:00 Follow up: Response: No adverse reaction; Pain is decreased ha1 03:45 Drug: Rocephin - Rocephin (cefTRIAXone) IVPB 1 grams IVPB once over 30 mins; (mix in 50 ha1 mL NS) Route: IVPB; Infused Over: 30 mins; Site: right antecubital; 04:00 Follow up: Response: No adverse reaction; IV Status: Completed infusion ha1 Medication: 06:04 VIS not applicable for this client. ha1 Outcome: 05:45 Discharge ordered by . mariano 06:16 Discharged to home ambulatory, with family, ha1 06:16 Condition: stable 06:16 Discharge instructions given to patient, family, Instructed on discharge instructions, follow up and referral plans. medication usage, Demonstrated understanding of instructions, follow-up care, medications, Prescriptions given X 4, 06:17 Patient left the ED. ha1 Signatures: Dispatcher [employer] EDMS Henry De La Cruz RN RN jb4 Peri Shipley RN RN ha1 Rahat Johansen MD MD sp4 Melanie Nelson 2
--- NOTE | 2024-11-11 05:46 | EDPHYS ---
Physician Documentation [facility] Name: Nancy Ruby Age: 24 yrs Sex: Female : 2000 Arrival Date: 11/11/2024 Time: 02:35 Bed 6 Private MD: ED Physician Rahat Johansen HPI: 11/11 02:41 This 24 yrs old Female presents to ER via Unassigned with complaints of Flank sp4 Pain, Weakness, Post surgery 10-20-24. 20:39 24-year-old female with history of abdominoplasty presents with left upper quadrant sp4 flank and abdominal pain. Patient also has history of recent cone biopsy of her cervix. Cervical cone biopsy was 10/20/2024.. 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 - Infectious Disease History:: Denies. - Social history:: Smoking status: Patient reports the use of cigarette tobacco products, denies chronic smoking, but will smoke occasionally. - Family history:: not pertinent. ROS: 20:39 Constitutional: Negative for fever, chills, and weight loss, positive left upper sp4 quadrant abdominal pain positive left flank pain 20:39 All other systems are negative, Exam: 20:39 Constitutional: This is a well developed, well nourished patient who is awake, alert, sp4 and in no acute distress. Head/Face: Normocephalic, atraumatic. Eyes: Pupils equal round and reactive to light, extra-ocular motions intact. Lids and lashes normal. Conjunctiva and sclera are not injected. Cornea within normal limits. Periorbital areas with no swelling, redness, or edema. ENT: Nares patent. No nasal discharge, no septal abnormalities noted. Tympanic membranes are normal and external auditory canals are clear. Oropharynx with no redness, swelling, or masses, exudates, or evidence of obstruction, uvula midline. Mucous membranes moist. Neck: Trachea midline, no thyromegaly or masses palpated, and no cervical lymphadenopathy. Supple, full range of motion without nuchal rigidity, or vertebral point tenderness. Chest/axilla: Normal chest wall appearance and motion. Nontender with no deformity. No lesions are appreciated. Cardiovascular: Regular rate and rhythm with a normal S1 and S2. No gallops, murmurs, or rubs. No pulse deficits. Respiratory: Lungs have equal breath sounds bilaterally, clear to auscultation and percussion. No rales, rhonchi or wheezes noted. No increased work of breathing, no retractions or nasal flaring. Abdomen/GI: Soft, with normal bowel sounds. No distension or tympany. Positive left upper abdominal tenderness, positive left costovertebral angle tenderness Back: No spinal tenderness. No costovertebral tenderness. Skin: Warm, dry with normal turgor. Normal color with no rashes, no lesions, and no evidence of cellulitis. MS/ Extremity: Pulses equal, no cyanosis. Neurovascular intact. Full, normal range of motion. Neuro: Awake and alert, GCS 15, oriented to person, place, time, and situation. Cranial nerves II-XII grossly intact. Motor strength 5/5 in all extremities. Sensory grossly intact. Psych: Awake, alert, with orientation to person, place and time. Behavior, mood, and affect are within normal limits Vital Signs: 02:50 BP 114 / 82; Pulse 83; Resp 16; Temp 98.5(O); Pulse Ox 100% on R/A; Weight 48.08 kg jb4 (R); Height 5 ft. 2 in. (R); Pain 10/10; 03:30 BP 104 / 69; Pulse 64; Resp 18 S; Pulse Ox 99% on R/A; ha1 04:30 BP 105 / 61; Pulse 61; Resp 18 S; Pulse Ox 99% on R/A; ha1 05:39 BP 101 / 62; Pulse 68; Resp 17 S; Pulse Ox 99% on R/A; ha1 02:50 Body Mass Index 19.39 (48.08 kg, 157.48 cm) jb4 02:50 Pain Scale: Adult jb4 [place] Coma Score: 20:39 Eye Response: spontaneous(4). Motor Response: obeys commands(6). Verbal Response: sp4 oriented(5). Total: 15. MDM: 02:44 Medical Screening Exam initiated sp4 05:38 ED course: INDICATION: ABD PAIN COMPARISON: No existing relevant imaging studies are sp4 available TECHNIQUE: Enhanced CT of the abdomen and pelvis performed per protocol. Oral contrast was not administered. Multiplanar reconstructions were provided. Dose reduction techniques were utilized for this exam including automated exposure control, adjustments to mA and/or kV according to patient's size, and the use of iterative reconstruction techniques. FINDINGS: LOWER CHEST: Lung bases are clear. LIVER: Unremarkable. SPLEEN: Unremarkable. PANCREAS: Unremarkable. ADRENALS: Unremarkable. KIDNEYS: Unremarkable. GALLBLADDER: Unremarkable. VESSELS: Aortoiliac system normal in course and caliber. BOWEL: Few fluid-filled and thickened loops of small bowel within the left upper quadrant. No bowel obstruction. APPENDIX: Normal. FLUID: No free fluid or abnormal fluid collection. ADENOPATHY: No pathologic adenopathy. BLADDER: Circumferential thickening of the urinary bladder wall. PELVIS: Uterus and adnexa are unremarkable. BONES: No acute bony abnormality. SOFT TISSUES: Unremarkable. IMPRESSION: 1. Small bowel enteritis within the left upper quadrant. 2. Urinary bladder wall thickening. Recommend correlation with urinalysis to evaluate for cystitis. . 20:39 Differential diagnosis: nephrolithiasis, pyelonephritis, UTI, diverticulitis, sp4 pancreatitis. Data reviewed: vital signs, nurses notes. Consideration of Admission/Observation Escalation of care including admission/observation considered. ED course: CT has revealed signs of small bowel enteritis within the left upper quadrant. Otherwise mild urinary bladder wall thickening, UTI signs present on urinalysis. Will recommend clear liquid diet for 24 hours, will recommend cephalexin for 10 days, will prescribe symptomatic medication for pain and nausea control.. 11/11 03:05 Order name: CBC with Diff; Complete Time: 05:10 sp4 11/11 03:05 Order name: CMP; Complete Time: 05:10 sp4 11/11 03:05 Order name: Lipase; Complete Time: 05:10 sp4 11/11 03:06 Order name: Test, Serum; Complete Time: 05:10 sp4 11/11 03:06 Order name: UA W/ Microscopic; Complete Time: 05:41 sp4 11/11 03:05 Order name: CT Abd/Pelvis - IV Contrast Only sp4 11/11 03:05 Order name: IV Saline Lock; Complete Time: 03:53 sp4 11/11 03:05 Order name: Labs collected and sent; Complete Time: 03:53 sp4 Administered Medications: 03:32 Drug: TORadol - Ketorolac IVP 30 mg IVP once Route: IVP; Site: right antecubital; ha1 04:00 Follow up: Response: No adverse reaction; Marked relief of symptoms; Pain is decreased ha1 03:34 Drug: Ondansetron IVP 4 mg IVP once; over 2 minutes Route: IVP; Site: right antecubital;ha1 04:00 Follow up: Response: No adverse reaction; Marked relief of symptoms ha1 03:36 Drug: NS 0.9% IV 1000 ml IV at 1 bolus Per protocol; to be given as a bolus over 60 ha1 minutes Route: IV; Rate: 1 bolus; Site: right antecubital; 06:08 Follow up: Response: No adverse reaction; IV Status: Completed infusion ha1 03:38 Drug: Famotidine IVP 20 mg IVP once; dilute with 10 mL 0.9% NaCl; give over 2 minutes ha1 Route: IVP; Site: right antecubital; 04:00 Follow up: Response: No adverse reaction; Marked relief of symptoms ha1 03:40 Drug: morphine IVP or IV 4 mg IVP once over 4 mins Route: IVP; Infused Over: 4 mins; ha1 Site: right antecubital; 04:00 Follow up: Response: No adverse reaction; Marked relief of symptoms; Pain is decreased; ha1 RASS: Alert and Calm (0) 03:40 Drug: Droperidol IVP 2.5 mg IVP once Route: IVP; Site: right antecubital; ha1 04:00 Follow up: Response: No adverse reaction; Pain is decreased ha1 03:45 Drug: Rocephin - Rocephin (cefTRIAXone) IVPB 1 grams IVPB once over 30 mins; (mix in 50 ha1 mL NS) Route: IVPB; Infused Over: 30 mins; Site: right antecubital; 04:00 Follow up: Response: No adverse reaction; IV Status: Completed infusion ha1 Disposition: 20:39 Chart complete. sp4 Disposition Summary: 11/11/24 05:45 Discharge Ordered Notes: we recommend Clear liquid diet for next 24 hours Location: Home sp4 Problem: new sp4 Symptoms: have improved sp4 Condition: Stable sp4 Diagnosis - Acute gastroenteritis, left upper quadrant abdominal pain. sp4 Followup: sp4 - With: Private Physician - When: 7 - 10 days - Reason: Recheck today's complaints Discharge Instructions: - Discharge Summary Sheet sp4 - Viral Gastroenteritis, Adult, [id number] sp4 - Urinary Tract Infection, Adult, [id number] sp4 - Clear Liquid Diet, Adult, [id number] sp4 Forms: - Patient Portal Instructions sp4 Prescriptions: - meloxicam 15 mg Oral tablet - take 1 tablet ORAL route daily PRN pain; 30 tablet; Refills: 0, Product sp4 Selection Permitted - ondansetron 4 mg Oral Tablet,disintegrating - take 1 tablet ORAL route every 6 hours as needed for nausea and vomiting; 30 sp4 tablet; Refills: 0, Product Selection Permitted - Cephalexin 500 mg Oral Capsule - take 1 capsule ORAL route every 12 hours for 10 days; 20 capsule; Refills: 0, sp4 Product Selection Permitted - Tramadol 50 mg Oral tablet - take 1 tablet ORAL route every 8 hours as needed; 25 tablet; Refills: 0, sp4 Product Selection Permitted Signatures: Dispatcher [employer] EDHenry Santoro, RN RN jb4 Peri Shipley RN RN ha1 Rahat Johansen MD MD sp4 Corrections: (The following items were deleted from the chart) 03:06 03:06 CBC+H.LAB.BRZ ordered. EDMS EDMS 03:06 03:06 COMPREHENSIVE METABOLIC PANEL+C.LAB.BRZ ordered. EDMS EDMS 03:06 03:06 LIPASE+C.LAB.BRZ ordered. EDMS EDMS 03:06 03:06 Abdomen Pelvis W Con+CT.RAD.BRZ ordered. EDMS EDMS 03:06 03:06 TEST, SERUM+SC.LAB.BRZ ordered. EDMS EDMS 03:06 03:06 UA W/ Microscopic+U.LAB.BRZ ordered. EDMS EDMS
--- NOTE | 2024-11-11 06:00 | RAD REPORT ---
INDICATION: ABD PAIN COMPARISON: No existing relevant imaging studies are available TECHNIQUE: Enhanced CT of the abdomen and pelvis performed per protocol. Oral contrast was not administered. Mul tiplanar reconstructions were provided. Dose reduction techniques were utilized for this exam including automated exposure control, adjustmen ts to mA and/or kV according to patient's size, and the use of iterative reconstruction techniques. FINDINGS: LOWER CHEST: Lung bases are clear. LIVER: Unremarkable. SPLEEN: Unremarkable. PANCREAS: Unremarkable. ADRENALS: Unremarkable. KIDNEYS: Unremarkable. GALLBLADDER: Unremarkable. VESSELS: Aortoiliac system normal in course and caliber. BOWEL: Few fluid-filled and thickened loops of small bowel within the left upper quadrant. No bowel o bstruction. APPENDIX: Normal. FLUID: No free fluid or abnormal fluid collection. ADENOPATHY: No pathologic adenopathy. BLADDER: Circumferential thickening of the urinary bladder wall. PELVIS: Uterus and adnexa are unremarkable. BONES: No acute bony abnormality. SOFT TISSUES: Unremarkable. IMPRESSION: 1. Small bowel enteritis within the left upper quadrant. 2. Urinary bladder wall thickening. Recommend correlation with urinalysis to evaluate for cystitis. Electronically signed by: Mukesh Mohamud DO 11/11/2024 05:21 AM CDT NR Due to temporary technical issues with the PACS/[employer] reporting system, reports are being rudi d by the in-house radiologist without review as a courtesy to ensure prompt reporting the interpreting radiologist is fully responsible for the content of the report. Transcribed Date/Time: 11/11/2024 6:00 AM
[2024-11-11 06:22] VITALS: TEMP 98.5
[2024-11-11 06:23] VITALS: O2SAT 99
[2024-11-11 06:27] VITALS: BP 101/62
== END 2024-11-11 06:17 | disposition home or self-care (01) ==
LOC: ER 02:35
DX: K52.9 Noninfective gastroenteritis and colitis, unspecified (principal); Z98.890 Other specified postprocedural states
CPT/HCPCS: 36415; 74177; 80053; 81001; 83690; 84703; 85025; 96361; 96374; 96375; 99284; J0696; J1790; J2405; J7030; Q9967